=== PATIENT | female | born 1965 | race Caucasian/White ===

== ENCOUNTER 2017-07-05 15:19 | Observation (INO) ==
--- NOTE | 2017-07-05 16:02 | Emergency Department Note ---
ED Disposition Clinical Impression: Chest pain, Hypertension, Anxiety Disposition: Still a Patient Condition on Discharge: Fair Referrals: Terrance Ramos MD [Primary Care Provider] - - Critical Care Critical Care Time: No Attestation: On 07/05/17, the high probability of a clinically significant, sudden or life threatening deterioration of the following system(s) required my full and direct attention, intervention and personal management. The time I documented below is in addition to time spent performing reported procedures but includes the following listed in this critical care notation. Medical Decision Making - Medical Records Medical records reviewed: Yes: I reviewed the patient's medical records. - Gregor Inquiry Pt receiving controlled substance: No Gregor was queried for this patient: No Vital Signs: 07/05/17 15:20 07/05/17 16:20 07/05/17 16:30 Temperature 98.6 F Temperature Source Oral Pulse Rate 85 Pulse Rate [Right Radial] 77 98 H Respiratory Rate 20 20 Blood Pressure [Right Arm] 145/93 163/97 Blood Pressure Mean [Right Arm] 110 119 Blood Pressure Source [Right Arm] Automatic Cuff Automatic Cuff Blood Pressure Position [Right Arm] Sitting Sitting 02 Sat by Pulse Oximetry 99 100 Oxygen Delivery Method Room Air Room Air - Lab Data Lab Results 07/05/17 16:00: WBC 6.1, RBC 4.18 L, Hgb 13.0, Hct 38.4, MCV 92.0, MCH 31.2, MCHC 33.9, RDW 13.9, Plt Count 244, MPV 7.0 L, Neut % (Auto) 48.0, Lymph % (Auto ) 42.9, Greer % (Auto) 7.5, Eos % (Auto) 1.1, Baso % (Auto) 0.4, Neut # (Auto) 2.9, Lymph # (Auto) 2.6, Greer # (Auto) 0.5, Eos # (Auto) 0.1, Baso # (Auto) 0.0 07/05/17 16:00: Sodium 140, Potassium 3.6, Chloride 103, Carbon Dioxide 28, Anion Gap 12.6, BUN 11, Creatinine 0.68, Estimated Creat Clear 117, Estimated GFR 92, Est GFR ( Amer) 111, Glucose 108 H, Calcium 9.1, Total Bilirubin 0.2, AST 28, ALT 30, Alkaline Phosphatase 56, Total Creatine Kinase 117, CK-MB ( CK-2) < 0.5, CK-MB (CK-2) Rel Index 0.4, Troponin I < 0.02, Total Protein 7.6, Albumin 3.9, Globulin 3.7 H, Albumin/Globulin Ratio 1.1 07/05/17 16:00: D-Dimer < 100 07/05/17 16:00: B-Natriuretic Peptide 14 Result diagrams: 07/05/17 16:00 07/05/17 16:00 Orders (Tests/Meds): ED MEDICATIONS Generic Name Dose Route Start Last Admin Trade Name Freq PRN Reason Stop Dose Admin Aspirin 325 mg 07/06/17 09:00 07/05/17 16:15 Aspirin Ec 325mg Tablet PO 08/05/17 08:59 325 mg DAILY MEG Administration Nitroglycerin 0.5 gm 07/05/17 16:15 07/05/17 16:15 Nitroglycerin 1 Inch Oint Udp TD 08/04/17 16:14 0.5 gm Q6H MEG Administration Discontinued Medications Generic Name Dose Route Start Last Admin Trade Name Freq PRN Reason Stop Dose Admin Albuterol/Ipratropium 3 ml 07/05/17 16:07 07/05/17 16:25 Duoneb 3ml Neb IH 07/05/17 16:08 3 ml ONCE ONE Administration Lorazepam 1 mg 07/05/17 17:00 Ativan 2mg/Ml Vial IV 07/05/17 17:01 ONCE ONE ORDERS Category Date Time Status ECG Request by /Meggan Stat Y 07/05/17 15:37 Ordered - Radiology Data #1 Image(s): Chest Image Reviewed: Yes I reviewed the patient's radiology image, Yes I have reviewed radiologist's interpretation Preliminary Findings: Normal/NAD - ECG Data Tracing #1 Normal sinus rhythm 74/min left axis deviation no acute findings Medical Decision Narrative: Patient received DuoNeb nitroglycerin and enteric-coated aspirin she continued to complain of shortness of breath and chest pain. She labs were negative. [address] Henson for admission and cardiology consultation. Chest Pain HPI - General Chief Complaint: Shortness of Breath/Dyspnea Stated Complaint: soa, chest pain Time Seen by Provider: 07/05/17 15:20 Mode of Arrival: Wheelchair Limitations: No Limitations Description of Symptoms (Recalled from ER Triage Doc. by RN): pt was [facility] upon leaving office she was telling them she has been having pain under her L breast , and SOA that has been coming and going x2 days , CP and SOA dont come at the same time and only last for brief time. no cardiac HX , only HX of RA - History of Present Illness HPI narrative: 51 years old white female non-smoker with history of rheumatoid arthritis she was here to get a nerve conduction study. That is when she reported to them that she has been experiencing left inframammary pain dull in character (last was noon yesterday more than 24). She complains of shortness of breath that was last noted 30 minutes prior to arrival. Currently she is asymptomatic of both chest pain shortness of breath or palpitations. He denies nausea or vomiting or abdominal pain. She denies having hematemesis hemoptysis coffee- ground emesis. She denies 3 off hypertension hyperlipidemia she admits for a strong family history of coronary artery disease. MD complaint: chest pain Onset (ago): day(s) (2 episodes of chest pain yesterday at rest.) Time: 12:00 (YESTERDAY) Duration: now resolved Activity at onset: during rest Pain location: left chest (INFRAMAMMARY LEFT CHEST PAIN. ) Severity: moderate Severity scale (1-10): 5 Relieving factors: nothing Exacerbating factors: nothing Associated symptoms: dyspnea Risk Factors for CAD: Family Hx of CAD Treatments prior to or on arrival for Cardiac Chest Pain: none - Related Data Home Medications Medication Instructions Recorded Confirmed abatacept 125 mg/mL subcutaneous 125 mg SUB-Q WEEKLY 28 Days #4 07/05/17 syringe alprazolam 0.5 mg tablet 0.5 mg PO TID 30 Days #90 07/05/17 folic acid 1 mg tablet 1 mg PO DAILY 30 Days #30 07/05/17 hydroxychloroquine 200 mg tablet 200 mg PO BID 30 Days #60 07/05/17 methotrexate sodium (PF) 25 mg/mL 25 mg IM WEEKLY 30 Days #10 07/05/17 injection solution sulindac 200 mg tablet 200 mg PO BID 30 Days #60 07/05/17 Allergies Allergy/AdvReac Type Severity Reaction Status Date / Time No Known Allergies Allergy Verified 07/05/17 15:[address] [facility] History I have reviewed the patient's past medical history: Yes Medical History: Reports:: Anxiety, Depression Other Medical History: Reports: Anemia, Arthritis Other Surgeries: Yes: Cholecystectomy, Tubal Ligation - Social History Smoking Status: Former smoker Alcohol Intake: current Alcohol Intake Frequency:: a few times a week Substance Use Type: denies use Occupational Status: unemployed Housing: house Household Members: family - Psychiatric History Pschychiatric History:: Reports:: Anxiety, Depression Family Hx:: Coronary Artery Disease Comment: copd ROS Obtained: Yes All systems reviewed & no additional complaints Physical Exam - General General appearance: alert, in no apparent distress - Head Head exam: atraumatic, normocephalic, normal inspection - Eye Eye exam: Present: normal appearance, PERRL, EOMI - ENT ENT exam: Present: normal exam, normal oropharynx, mucous membranes moist, TM's normal bilaterally, normal external ear exam - Neck Neck exam: Present: normal inspection, full ROM, trachea midline. Absent: meningismus, lymphadenopathy - Chest Chest inspection: Present: normal inspection, symmetric chest wall rise. Absent : tenderness - Respiratory Respiratory exam: Present: normal lung sounds bilaterally. Absent: respiratory distress - Cardiovascular Cardiovascular exam: Present: regular rate, normal rhythm. Absent: JVD - Abdominal Exam Abdominal exam: Present: soft, normal bowel sounds. Absent: distention, tenderness, guarding - Extremities Exam Extremities exam: Present: normal inspection, full ROM, normal capillary refill. Absent: calf tenderness - Back Exam Back exam: Present: normal inspection. Absent: tenderness - Neurological Exam Neurological exam: Present: alert, oriented X3, CN II-XII intact, motor sensory deficit, reflexes normal - Psychiatric Psychiatric exam: Present: normal affect, normal mood - Skin Skin exam: Present: warm, dry, intact, normal color - Lymphatic Lymphatic Findings: no adenopathy
[2017-07-05 16:07] LABS: Basophils % 0.4 % (0.1-2.0); Eosinophils # 0.1 K/mm3 (0.0-0.4); Eosinophils % 1.1 % (0.1-12.0); Hematocrit 38.4 % (37.0-47.0); Lymphocytes # 2.6 K/mm3 (0.7-4.5); Lymphocytes % 42.9 K/mm3 (10-50); Mean Corpuscular HGB Conc 33.9 g/dL (31.8-35.4); Mean Corpuscular Hemoglobin 31.2 pg (27.0-31.2); Monocytes # 0.5 K/mm3 (0.1-1.0); Monocytes % 7.5 % (1.7-9.3); Neutrophils # 2.9 K/mm3 (1.8-7.8); Platelet Count 244 K/mm3 (142-424); Red Blood Count 4.18 M/mm3 (4.20-5.40); Red Cell Distribution Width 13.9 % (11.5-17.5); White Blood Count 6.1 K/mm3 (4.8-10.8)
[2017-07-05 16:39] LABS: Alanine Aminotransferase 30 U/L (12-78); Albumin Level 3.9 gm/dL (3.4-5.0); Albumin/Globulin Ratio 1.1 (1.1-1.8); Alkaline Phosphatase 56 U/L (46-116); Anion Gap 12.6 mEq/L (5-15); Aspartate Amino Transferase 28 U/L (15-37); Bilirubin,Total 0.2 mg/dL (0.2-1.0); Blood Urea Nitrogen 11 mg/dL (7-18); Calcium 9.1 mg/dL (8.5-10.1); Carbon Dioxide 28 mmol/L (21.0-32.0); Chloride 103 mmol/L (98-107); Creatine Kinase 117 U/L (26-192); Globulin 3.7 gm/dl (1.3-3.2); Glucose 108 mg/dL (74-106); Potassium 3.6 mmoL/L (3.5-5.1); Sodium 140 mmol/L (136-145); Total Protein,Serum 7.6 gm/dL (6.4-8.2)
--- NOTE | 2017-07-05 19:18 | Progress Note ---
Internal Medicine - PN: Subj *Date: 07/05/17 *Time: 19:15 Interval history: This 51-year-old white female was being seen by neurology for symptoms of paresthesias of the hands. Her blood pressure was found to be elevated and she was sent to the emergency room. She was also experiencing some shortness of breath and tightness of chest. She received a nebulizer treatment in the emergency room and experienced increased heart rate and became tremulous and anxious. She was admitted at this point for observation. At the time of this exam she is stable. She is not having chest discomfort. Her pressures have been elevated. In the emergency room she recorded pressures of 133/83, 163/97, 145/93. At the present time she is registering a blood pressure of 158/89. She thinks that recently her blood pressures may have been elevated at home. She has been taking her regular medications. Exam Vital signs and Labs for Last 24 Hours: Temp Pulse Resp BP Pulse Ox 98.6 F 93 H 18 133/83 98 07/05/17 18:16 07/05/17 18:16 07/05/17 18:16 07/05/17 18:16 07/05/17 18:16 Laboratory Results - last 24 hr 07/05/17 18:20: Troponin I < 0.02 I & O for Last 24 hours: Intake & Output 07/03/17 07/04/17 07/05/17 07/06/17 11:59 11:59 11:59 11:59 Weight 162 lb 8 oz - Constitutional no acute distress - *Routine HEENT Exam Head: Present: normocephalic Eye: Present: EOMI, PERRL ENT: Present: mucous membranes moist - *Routine Neck Exam Present: supple - *Routine Respiratory Exam Present: CTA bilaterally. Absent: rales, rhonchi, wheezes - *Routine Cardiovascular Exam Present: RRR Comments: 82 - *Routine Abdominal Exam Present: soft. Absent: tenderness - *Routine Extremities Exam Absent: edema - *Routine Neurological Exam Present: alert, oriented X3, normal tone, normal speech. Absent: altered mental status, facial asymmetry, tremors - Routine Psychiatric Exam Present: normal affect, normal thought process Assessment and Plan (1) Idiosyncratic reaction to medication after proper dose Current visit: Yes Status: Acute Category: Medical Code(s): T50.905A - Adverse effect of unspecified drugs, medicaments and biological substances, initial encounter (2) Anxiety Current visit: Yes Status: Acute Category: Medical Code(s): F41.9 - Anxiety disorder, unspecified (3) Chest pain Current visit: Yes Status: Acute Category: Medical Code(s): R07.9 - Chest pain, unspecified (4) Hypertension Current visit: Yes Status: Acute Category: Medical Code(s): I10 - Essential (primary) hypertension - Assessment and plan all Dx Assessment and Plan for all problems:: Observe overnight and adjust blood pressure medications accordingly. Troponins have been negative. Other lab work has been normal.
--- NOTE | 2017-07-06 07:30 | Pharmacy Consult Notes ---
[facility] [place] Pharmacy VTE Monitoring - Patient Demographics Admission date: 07/05/17 Report Date: 07/06/17 Time: 07:30 Allergies/Adverse Reactions: Patient Allergies adalimumab [From Humira] Allergy (Mild, Verified 07/05/17 18:36) Hives Height: 1.57 m Weight: 73.709 kg Patient Problems: Current Active Problems Chest pain (Acute) Hypertension (Acute) Anxiety (Acute) Idiosyncratic reaction to medication after proper dose (Acute) - VTE Risk Labs: VTE Related Lab Results Hgb 13.0 g/dL (12.2-16.2) 07/05/17 16:00 Hct 38.4 % (37.0-47.0) 07/05/17 16:00 Plt Count 244 K/mm3 (142-424) 07/05/17 16:00 BUN 11 mg/dL (7-18) 07/05/17 16:00 Creatinine 0.68 mg/dL (0.55-1.02) 07/05/17 16:00 Estimated Creat Clear 117 mL/min (0-300) 07/05/17 16:00 Was VTE Risk Assessment Performed: Yes VTE Score: 1 VTE Risk Level: Very Low Risk - Prophylaxis VTE Prophylaxis Ordered?: Yes Types of VTE Prophylaxis: TEDS Knee High Location of Applied Device: Bilateral Lower Extremeties - VTE Diagnosis Confirmed Treatment or plan recommended: Continue Current Treatment
--- NOTE | 2017-07-06 08:37 | History & Physical Report ---
*Admission Date: 07/05/17 *Chief complaint: SOA, CP, elevated BP [facility] History Medical History: Reports:: Anxiety, Depression, Hyperlipidemia Denies:: Cancer, Diabetes Mellitus Type 1, Diabetes Mellitus Type 2, MRSA Other Medical History: Reports: Anemia, Arthritis, Chemotherapy (methotrexate ( RA)) Other Surgeries: Yes: Cholecystectomy, Colonoscopy, EGD, Tubal Ligation Amputation: No Fractures: No - *Social History Educational Level: Completed GED/General Educational Development Smoking Status: Never smoker Alcohol Intake: current Alcohol Intake Frequency:: a few times a week Substance Use Type: denies use Occupational Status: unemployed Housing: house Household Members: spouse, children - Psychiatric History Expresses thoughts of harming self/others: None Suicide Plan Description: No Plan Pschychiatric History:: Reports:: Anxiety, Depression *Family Hx:: Anemia, Coronary Artery Disease, Diabetes, Heart Attack, Hyperlipidemia, Hypertension, Kidney Disease, Stroke, Tuberculosis Meds Home Medications Medication Instructions Recorded Confirmed Type abatacept 125 mg/mL subcutaneous 125 mg SUB-Q WEEKLY 28 Days #4 07/05/17 History syringe alprazolam 0.5 mg tablet 0.5 mg PO TID 30 Days #90 07/05/17 07/05/17 History folic acid 1 mg tablet 1 mg PO DAILY 30 Days #30 07/05/17 07/05/17 History hydroxychloroquine 200 mg tablet 200 mg PO BID 30 Days #60 07/05/17 07/05/17 History methotrexate sodium (PF) 25 mg/mL 25 mg IM WEEKLY 30 Days #10 07/05/17 07/05/17 History injection solution sulindac 200 mg tablet 200 mg PO BID 30 Days #60 07/05/17 07/05/17 History raNITIdine HCl [Ranitidine HCl] 150 mg PO DAILY 07/06/17 07/06/17 History Allergies Allergy/AdvReac Type Severity Reaction Status Date / Time adalimumab [From Humira] Allergy Mild Hives Verified 07/05/17 18:36 Exam Vital signs and Labs for Last 24 Hours: Temp Pulse Resp BP Pulse Ox 98.0 F 70 18 96/57 98 07/06/17 03:56 07/06/17 04:00 07/06/17 03:56 07/06/17 03:56 07/06/17 03:56 Laboratory Results - last 24 hr 07/05/17 18:20: Troponin I < 0.02 07/06/17 06:28: Troponin I < 0.02 I & O for Last 24 hours: Intake & Output 07/03/17 07/04/17 07/05/17 07/06/17 11:59 11:59 11:59 11:59 Output Total 900 / 900 Balance -900 / -900 Weight 162 lb 8 oz H&P: Result - Labs Labs: Cardiac Enzymes 07/05/17 07/06/17 Range/Units 18:20 06:28 Troponin I < 0.02 < 0.02 (0.00-0.06) ng/ml Assessment and Plan (1) Idiosyncratic reaction to medication after proper dose Current visit: Yes Status: Acute Category: Medical Code(s): T50.905A - Adverse effect of unspecified drugs, medicaments and biological substances, initial encounter (2) Anxiety Current visit: Yes Status: Acute Category: Medical Code(s): F41.9 - Anxiety disorder, unspecified (3) Chest pain Current visit: Yes Status: Acute Category: Medical Code(s): R07.9 - Chest pain, unspecified (4) Hypertension Current visit: Yes Status: Acute Category: Medical Code(s): I10 - Essential (primary) hypertension
--- NOTE | 2017-07-06 08:42 | H&P/Discharge Summary ---
General - General Admission date: 07/05/17 Discharge date: 07/06/17 *Admission Date: 07/05/17 *Chief complaint: CP, SOA, HTN *History of present illness: Ms. Bales is a 51-year-old white female who was being seen by neurology for symptoms of paresthesias of the hands. Her blood pressure was found to be elevated and she was sent to the emergency room. She was also experiencing some shortness of breath and tightness of the chest. She received a nebulizer treatment in the emergency room and experienced increased heart rate and became tremulous and anxious. She was admitted at this point for observation. [facility] History Medical History: Reports:: Anxiety, Depression, Hyperlipidemia Denies:: Cancer, Diabetes Mellitus Type 1, Diabetes Mellitus Type 2, MRSA Other Medical History: Reports: Anemia, Arthritis, Chemotherapy (methotrexate ( RA)) Other Surgeries: Yes: Cholecystectomy, Colonoscopy, EGD, Tubal Ligation Amputation: No Fractures: No - *Social History Educational Level: Completed GED/General Educational Development Smoking Status: Never smoker Alcohol Intake: current Alcohol Intake Frequency:: a few times a week Substance Use Type: denies use Occupational Status: unemployed Housing: house Household Members: spouse, children - Psychiatric History Expresses thoughts of harming self/others: None Suicide Plan Description: No Plan Pschychiatric History:: Reports:: Anxiety, Depression *Family Hx:: Anemia, Coronary Artery Disease, Diabetes, Heart Attack, Hyperlipidemia, Hypertension, Kidney Disease, Stroke, Tuberculosis Review of Systems - Constitutional Reports weakness, Denies body ache(s), Denies headache(s) - Eyes Denies blurry vision, Denies double vision - ENT Reports nasal congestion, Reports sore throat - *Cardiovascular Reports chest pain (none now), Denies leg swelling, Denies fast heart rate - *Respiratory Reports shortness of breath, Denies cough - *Gastrointestinal Reports nausea, Denies abdominal pain, Denies loose stools, Denies vomiting - *Genitourinary Denies difficulty urinating - *Musculoskeletal Denies joint pain - *Neurologic Denies headache(s), Denies dizziness, Denies weakness Exam Vital signs and Labs for Last 24 Hours: Temp Pulse Resp BP Pulse Ox 98.0 F 70 18 96/57 98 07/06/17 03:56 07/06/17 04:00 07/06/17 03:56 07/06/17 03:56 07/06/17 03:56 Laboratory Results - last 24 hr Lab Results 07/05/17 00:10: Troponin I < 0.02 07/05/17 16:00: WBC 6.1, RBC 4.18 L, Hgb 13.0, Hct 38.4, MCV 92.0, MCH 31.2, MCHC 33.9, RDW 13.9, Plt Count 244, MPV 7.0 L, Neut % (Auto) 48.0, Lymph % (Auto ) 42.9, Lynn % (Auto) 7.5, Eos % (Auto) 1.1, Baso % (Auto) 0.4, Neut # (Auto) 2.9, Lymph # (Auto) 2.6, Lynn # (Auto) 0.5, Eos # (Auto) 0.1, Baso # (Auto) 0.0 07/05/17 16:00: Sodium 140, Potassium 3.6, Chloride 103, Carbon Dioxide 28, Anion Gap 12.6, BUN 11, Creatinine 0.68, Estimated Creat Clear 117, Estimated GFR 92, Est GFR ( Amer) 111, Glucose 108 H, Calcium 9.1, Total Bilirubin 0.2, AST 28, ALT 30, Alkaline Phosphatase 56, Total Creatine Kinase 117, CK-MB ( CK-2) < 0.5, CK-MB (CK-2) Rel Index 0.4, Troponin I < 0.02, Total Protein 7.6, Albumin 3.9, Globulin 3.7 H, Albumin/Globulin Ratio 1.1 07/05/17 16:00: D-Dimer < 100 07/05/17 16:00: B-Natriuretic Peptide 14 07/05/17 16:00: TSH 1.70 07/05/17 18:20: Troponin I < 0.02 07/06/17 06:28: Troponin I < 0.02 I & O for Last 24 hours: Intake & Output 07/03/17 07/04/17 07/05/17 07/06/17 11:59 11:59 11:59 11:59 Output Total 900 / 900 Balance -900 / -900 Weight 162 lb 8 oz - Constitutional no acute distress - *Routine HEENT Exam Head: Present: normocephalic, atraumatic Eye: Present: EOMI, PERRL ENT: Present: mucous membranes moist - *Routine Neck Exam Present: supple, full ROM. Absent: carotid bruit - *Routine Respiratory Exam Present: CTA bilaterally - *Routine Cardiovascular Exam Present: RRR - *Routine Abdominal Exam Present: soft, normoactive bowel sounds. Absent: tenderness - *Routine Extremities Exam Absent: edema - *Routine Skin Exam Present: intact - *Routine Neurological Exam Present: alert, oriented X3 Hospital Course Hospital Course: The patient had only one more episode of chest discomfort and it resolved on its own. Her pressures were elevated and she was started on toprol and nitro paste. Her BP was actually low this am, so nitro was discontinued. Her enzymes were all normal. Cardiology did see the patient. She had a normal echo as well. IL was ruled out. They felt she was stable to be discharged home on metoprolol succinate 25mg daily and will need to follow-up in the cardiology office for an outpatient stress test. Results Labs on day of discharge: Labs from last 24 hours 07/06/17 07/05/17 06:28 18:20 Troponin I < 0.02 < 0.02 - Impressions CXR - nothing acute DS: Diagnosis - Discharge Diagnosis (1) Chest pain Status: Acute (2) Idiosyncratic reaction to medication after proper dose Status: Acute (3) Anxiety Status: Acute (4) Hypertension Status: Acute Discharge Medications Discharge Medications: Home Medications Medication Instructions Recorded Confirmed Type abatacept 125 mg/mL subcutaneous 125 mg SUB-Q WEEKLY 28 Days #4 07/05/17 History syringe alprazolam 0.5 mg tablet 0.5 mg PO TID 30 Days #90 07/05/17 07/05/17 History folic acid 1 mg tablet 1 mg PO DAILY 30 Days #30 07/05/17 07/05/17 History hydroxychloroquine 200 mg tablet 200 mg PO BID 30 Days #60 07/05/17 07/05/17 History methotrexate sodium (PF) 25 mg/mL 25 mg IM WEEKLY 30 Days #10 07/05/17 07/05/17 History injection solution sulindac 200 mg tablet 200 mg PO BID 30 Days #60 07/05/17 07/05/17 History raNITIdine HCl [Ranitidine HCl] 150 mg PO DAILY 07/06/17 07/06/17 History Disposition Disposition: Home, Self-Care
--- NOTE | 2017-07-06 10:34 | Consult Report ---
History of Present Illness Consult date: 07/06/17 Requesting physician: Terrance Ramos Consult reason: chest pain, shortness of breath Chief complaint: Chest pain and Shortness of breath Additional Medical History:: 1. Atypical chest pain 2. Dyspnea 3. No known Coronary Artery Disease. 4. Anxiety 5. Hyperlipidemia 6. Significant Family history of Coronary Artery Disease Father -LA ( unknown age) Mother- CAD Brother- [place] History of present illness: 51 year old white female admitted to facility for chest pain and shortness of breath. Pt stated that she had been evaluated by neurology and was told her blood pressure was elevated. Pt began having increase anxiety and developed chest pain (midsternal) non-radiating. Pt stated after she had nebulizer treatment, she felt much better. Pt has no known cardiac disease. Significant family history of CAD and [place]. Initial EKG revealed Sinus rhythm with rate of 74bpm. CXR revealed no acute findings. Baseline labs were unremarkable. Serial cardiac enzymes were negative. Pt was admitted for observation. [facility] History Medical History: Reports:: Anxiety, Depression, Hyperlipidemia Denies:: Cancer, Diabetes Mellitus Type 1, Diabetes Mellitus Type 2, MRSA Other Medical History: Reports: Anemia, Arthritis, Chemotherapy (methotrexate ( RA)) Other Surgeries: Yes: Cholecystectomy, Colonoscopy, EGD, Tubal Ligation Amputation: No Fractures: No - *Social History Educational Level: Completed GED/General Educational Development Smoking Status: Never smoker Alcohol Intake: current Alcohol Intake Frequency:: a few times a week Substance Use Type: denies use Occupational Status: unemployed Housing: house Household Members: spouse, children - Psychiatric History Expresses thoughts of harming self/others: None Suicide Plan Description: No Plan Pschychiatric History:: Reports:: Anxiety, Depression *Family Hx:: Anemia, Coronary Artery Disease, Diabetes, Heart Attack, Hyperlipidemia, Hypertension, Kidney Disease, Stroke, Tuberculosis Meds Home Medications Medication Instructions Recorded Confirmed Type abatacept 125 mg/mL subcutaneous 125 mg SUB-Q WEEKLY 28 Days #4 07/05/17 History syringe alprazolam 0.5 mg tablet 0.5 mg PO TID 30 Days #90 07/05/17 07/05/17 History folic acid 1 mg tablet 1 mg PO DAILY 30 Days #30 07/05/17 07/05/17 History hydroxychloroquine 200 mg tablet 200 mg PO BID 30 Days #60 07/05/17 07/05/17 History methotrexate sodium (PF) 25 mg/mL 25 mg IM WEEKLY 30 Days #10 07/05/17 07/05/17 History injection solution sulindac 200 mg tablet 200 mg PO BID 30 Days #60 07/05/17 07/05/17 History raNITIdine HCl [Ranitidine HCl] 150 mg PO DAILY 07/06/17 07/06/17 History Allergies Allergy/AdvReac Type Severity Reaction Status Date / Time adalimumab [From Humira] Allergy Mild Hives Verified 07/05/17 18:36 Review of Systems - Review of Systems Review of systems:: pertinent systems reviewed and negative unless documented below - Constitutional Reports fatigue, Reports lack of energy, Reports weakness - *Cardiovascular Reports chest pain, Reports chest pain at rest, Reports chest pain with activity , Reports shortness of breath, Denies generalized swelling, Denies irregular heart rhythm, Denies lightheadedness, Denies radiating jaw, neck or arm pain, Denies fast heart rate - *Respiratory Reports shortness of breath, Reports shortness of breath with activity, Denies chest congestion, Denies cough, Denies stridor, Denies wheezing - *Gastrointestinal Denies abdominal pain, Denies heartburn - *Musculoskeletal Reports muscle weakness - *Neurologic Denies dizziness, Denies headache(s), Denies dizziness, Denies weakness Exam Vital signs and Labs for Last 24 Hours: Temp Pulse Resp BP Pulse Ox 98.0 F 78 16 98/60 98 07/06/17 08:00 07/06/17 08:00 07/06/17 08:00 07/06/17 08:00 07/06/17 08:00 Laboratory Results - last 24 hr 07/05/17 18:20: Troponin I < 0.02 07/06/17 06:28: Troponin I < 0.02 I & O for Last 24 hours: Intake & Output 07/03/17 07/04/17 07/05/17 07/06/17 23:59 23:59 23:59 23:59 Output Total 400 / 400 500 / 500 Balance -400 / -400 -500 / -500 Weight 162 lb 8 oz 162 lb 8 oz - Constitutional no acute distress, average body habitus, cooperative - *Routine Neck Exam Present: supple, full ROM, normal carotid upstroke, trachea midline. Absent: JVD, carotid bruit - *Routine Respiratory Exam Present: CTA bilaterally. Absent: rales, rhonchi, wheezes, crackles - *Routine Cardiovascular Exam Present: RRR, Normal S1, Normal S2. Absent: murmur, gallop, rubs, JVD - *Routine Abdominal Exam Present: soft. Absent: distended, guarding - *Routine Extremities Exam Present: full ROM, pulses intact, normal capillary refill. Absent: cyanosis, clubbing, edema - *Routine Neurological Exam Present: alert, oriented X3, CN II-XII intact, moving all extremities, normal speech Assessment and Plan (1) Chest pain Current visit: Yes Status: Acute Category: Medical Code(s): R07.9 - Chest pain, unspecified (2) Idiosyncratic reaction to medication after proper dose Current visit: Yes Status: Acute Category: Medical Code(s): T50.905A - Adverse effect of unspecified drugs, medicaments and biological substances, initial encounter (3) Anxiety Current visit: Yes Status: Acute Category: Medical Code(s): F41.9 - Anxiety disorder, unspecified (4) Hypertension Current visit: Yes Status: Acute Category: Medical Code(s): I10 - Essential (primary) hypertension - Assessment and plan all Dx Assessment and Plan for all problems:: Plan: 1. Continue current medical management. 2. Add Aspirin 81mg po daily. 3. Obtain Echocardiogram to assess LV function and valve status. 4. Obtain GXT myoview outpatient for atypical chest pain and significant family history.
--- NOTE | 2017-07-09 21:23 | Cardiology Report ---
PROCEDURE: 2-D M-mode and color Doppler study INDICATIONS FOR THE TEST: Chest pain X COPD Heart Murmur Tobacco Smoking Palpitations Fatigue Syncope Edema HypertensionXDiabetes Mellitus Rheumatic Fever SOBXDOE Obesity Hyperlipidemia Family History HD Additional History PATIENT INFORMATION HEIGHT: 62 WEIGHT:162 GENDER: Female B/P:133/83 2-D/M-MODE INTERPRETATION: 2-D MEASUREMENTS OBSERVED VALUES IN CMS Right Ventricular Dimension (RVDd) 2.7 Interventricular Septum (Thickness)(IVsd) 1.0 Left Ventricular Internal Dimensions(LVIDd) 3.8 Left Ventricular Posterior Wall (Thickness)(LVPWd) .8 Aortic Root 2.7 Aortic Cusp Separation 1.9 Left Atrial Dimensions (LAD) 2.9 2D 1. Left atrium is mildly enlarged, left ventricle is normal size, mild concentric left ventricular hypertrophy, visually estimated ejection fraction of 55% with no obvious regional wall motion abnormality. 2. The right atrium and right ventricle are mildly enlarged with normal contractility. 3. The aortic valve is minimally thickened and fibrosed. 4. The mitral and tricuspid valvular grossly normal. 5. The pulmonic valve is poorly visualized. 6. No significant pericardial effusion noted. DOPPLER INTERROGATION: Doppler interrogation of the aortic, mitral and tricuspid valvular presence of mild mitral and tricuspid regurgitation, tricuspid regurgitant jet velocity is insufficient for calculation of the right ventricular systolic pressure, diastolic parameters are within normal range. CONCLUSION: 1. Mildly enlarged left atrium, normal left ventricular size, mild concentric left ventricular hypertrophy, visually estimated ejection fraction 55% with no obvious regional wall motion abnormality. Diastolic parameters are within normal range. 2. Mild mitral and tricuspid regurgitation 3. No significant pericardial effusion noted.
== END 2017-07-06 15:00 | disposition home or self-care (01) ==
LOC: ER 15:19 → 2ND 15:19
PROVIDERS: ADMIT Family Medicine; ATTEND Family Medicine

== ENCOUNTER → 2017-07-13 12:42 | Outpatient (CLI) | payer MEDICAID, SELFPAY ==
--- NOTE | 2017-07-13 12:51 | XR_ITS ---
XR foot wt bearing RT 3V Ordering Physician: Allegra Luna Patient Age: 51 years: Female HISTORY: Right foot pain heel pain. TECHNIQUE: 3 views right foot weightbearing COMPARISON :None FINDINGS The forefoot appears intact. The toes are intact. Joint spaces well-maintained. Normal relationships. Adequate plantar arch. I would question a small subchondral cystic area at the medial margin of the navicular near the tendinous insertion but no soft tissue swelling or other features here Plantar calcaneal spur measuring8 mm length Only scant and minimal spurring at insertion of Achilles tendon noted Ankle mortise appears intact on lateral view. IMPRESSION: Right foot intact. Minor observations in text
[2017-07-14 20:15] LABS: Folate >20.0 ng/mL (>3.0); Vitamin B12 593 pg/mL (232-1245)
[2017-07-18 06:18] LABS: Vitamin B1 116.3 nmol/L (66.5-200.0)
== END ==
PROVIDERS: Visit Provider Nurse Practitioner Family
DX: G57.93 Unspecified mononeuropathy of bilateral lower limbs (principal); R11.0 Nausea; R06.02 Shortness of breath; R03.0 Elevated blood-pressure reading, without diagnosis of hypertension; R20.2 Paresthesia of skin; M06.9 Rheumatoid arthritis, unspecified; Z87.898 Personal history of other specified conditions
CPT/HCPCS: 36415; 73630; 82607; 82746; 84425

== ENCOUNTER → 2017-07-18 16:30 | Outpatient (CLI) | payer MEDICAID, SELFPAY ==
--- NOTE | 2017-07-18 16:36 | XR_ITS ---
EXAM: XR cervical spine 5V HISTORY: Neck pain ITS.REASON: RHEUMATOID ARTHRITIS ORDERING PHYSICIAN: Terrance Ramos MD PATIENT AGE: 51 years FINDINGS: There is minimal anterolisthesis of C4 on 5 of 1 to 2 mm with slight reversal of cervical lordosis at this level. Degenerative disc disease is present at C5-C6 with decrease in the disc space and endplate osteophytes. The foramina are widely patent. No fracture or dislocation. No lytic or blastic change. No evidence of cervical rib. IMPRESSION: 1. Degenerative disc disease C5-C6. 2. Reversal cervical lordosis which may be due to patient positioning or muscle spasm
== END ==
PROVIDERS: Family Provider Family Medicine; PCP Family Medicine; Visit Provider Family Medicine
DX: M05.741 Rheumatoid arthritis with rheumatoid factor of right hand without organ or systems involvement (principal)
CPT/HCPCS: 72050

== ENCOUNTER → 2017-07-27 13:42 | Outpatient (CLI) | payer MEDICAID, SELFPAY ==
--- NOTE | 2017-07-27 13:43 | CT_ITS ---
CT heart w calcium score CLINICAL INDICATION: ITS.REASON: dyspnea,cp ORDERING PHYSICIAN: Luis Daniel Nieto MD PATIENT AGE: 51 years FINDINGS: Coronary artery calcium score is 0 with no identifiable atherosclerotic plaque. Very low cardiovascular disease risk. Calcified nodes are present in the left hilum. There is a small hiatal hernia IMPRESSION: Coronary artery calcium score of 0 with very low cardiovascular disease risk
== END ==
PROVIDERS: Family Provider Family Medicine; PCP Family Medicine; Visit Provider Internal Medicine
DX: R06.00 Dyspnea, unspecified (principal); I20.9 Angina pectoris, unspecified
CPT/HCPCS: 75571

== ENCOUNTER → 2017-08-06 09:54 | Outpatient (POV) | payer MEDICAID, SELFPAY | PROVIDERS: Family Provider Family Medicine; PCP Family Medicine; Referring Provider Internal Medicine Cardiovascular Disease; Visit Provider Specialist | DX: G57.93 Unspecified mononeuropathy of bilateral lower limbs (principal); R20.2 Paresthesia of skin; M06.9 Rheumatoid arthritis, unspecified | CPT/HCPCS: 95806; 95886; 95910 ==

== ENCOUNTER → 2017-08-15 13:36 | Outpatient (POV) | payer MEDICAID, SELFPAY | PROVIDERS: Family Provider Family Medicine; PCP Family Medicine | DX: Z00.00 Encounter for general adult medical examination without abnormal findings (principal) ==

== ENCOUNTER → 2018-01-11 16:06 | Outpatient (REF) | payer MEDICAID, SELFPAY ==
[2018-01-11 16:10] LABS: Adenovirus F 40/41, stool Not Detected (NotDetected); Astrovirus Not Detected (NotDetected); Campylobacter Not Detected (NotDetected); Clostridium Difficile A/B, PCR Not Detected (NotDetected); Cryptosporidium Not Detected (NotDetected); Cyclospora Cayetanesis Not Detected (NotDetected); Entamoeba histolytica Not Detected (NotDetected); Enteroaggregative E coli Not Detected (NotDetected); Enteropathogenic E coli Not Detected (NotDetected); Enterotoxigenic E coli Not Detected (NotDetected); Giardia lamblia Not Detected (NotDetected); Norovirus Not Detected (NotDetected); Plesimonas Shigalloides, PCR Not Detected (NotDetected); Rotavirus A Not Detected (NotDetected); Salmonella, PCR Not Detected (NotDetected); Sapovirus Not Detected (NotDetected); Shiga-like toxin E coli Not Detected (NotDetected); Shigella Enterovasive E coli Not Detected (NotDetected); Vibrio Cholerae Not Detected (NotDetected); Vibrio, PCR Not Detected (NotDetected); Yersinia Entercolitica, PCR Not Detected (NotDetected)
== END ==
LOC: LAB 16:06
PROVIDERS: Visit Provider Physician Assistant
DX: R19.7 Diarrhea, unspecified (principal)
CPT/HCPCS: 87507

== ENCOUNTER → 2018-01-16 14:07 | Outpatient (CLI) | payer MEDICAID, SELFPAY ==
--- NOTE | 2018-01-16 14:14 | XR_ITS ---
XR chest 2V HISTORY: ITS.REASON: BRONCHITIS ORDERING PHYSICIAN: Terrance Ramos MD PATIENT AGE: 52 years COMPARISON: 07/05/2017 FINDINGS: The cardiomediastinal silhouette and pulmonary vascularity are within normal limits. The lungs are clear without infiltrates, suspicious nodules, or pleural effusions. No acute bony abnormalities. Calcified granulomas present in the left upper lobe. There is an old midshaft right clavicular fracture with inferior angulation of the distal fracture fragment IMPRESSION: No change with no acute finding
--- NOTE | 2018-01-16 14:14 | XR_ITS ---
XR sinus min 3V CLINICAL INDICATION: Sinus drainage ITS.REASON: BRONCHITIS ORDERING PHYSICIAN: Terrance Ramos MD PATIENT AGE: 52 years Comparison: None FINDINGS: There is moderate mucosal thickening of the right maxillary sinus measuring up to 13 mm in thickness. No sinus air-fluid level or other significant anomalies. IMPRESSION: Right maxillary sinus disease
== END ==
PROVIDERS: PCP Family Medicine; Visit Provider Family Medicine
DX: J40 Bronchitis, not specified as acute or chronic (principal)
CPT/HCPCS: 70220; 71046

== ENCOUNTER → 2018-04-05 12:34 | Outpatient (CLI) | payer MEDICAID, SELFPAY ==
--- NOTE | 2018-04-05 12:37 | XR_ITS ---
XR wrist RT min 3V Ordering Physician: Halie Manrique MD Patient Age: 52 years: Female HISTORY: ITS.REASON: Rt wrist pain. Right wrist pain no injury. TECHNIQUE: 3 views right wrist COMPARISON :None FINDINGS Right wrist is intact with no fracture nor dislocation. Joint spaces well-maintained. The navicular appears overall intact. If there should be pain at the anatomical step-off the navicular however follow clavicular views or studies may be indicated. No joint effusion evident at the wrist., The fat plane anterior to wrist appears normal. Intact. ... IMPRESSION: ...... Right wrist intact with No fracture nor dislocation Addendum: Anatomical note on final review note subtle ulnar plus anatomy. Minor observation. With this the ulna is very slightly long relative to the radius. This can yield ulnar lunate abutment.... I see no changes in the lunate however reflects such.. Also Triangular fibrocartilage injuries could also occur with this anatomy
== END ==
PROVIDERS: PCP Family Medicine; Visit Provider Orthopaedic Surgery
DX: M25.531 Pain in right wrist (principal)
CPT/HCPCS: 73110

== ENCOUNTER → 2018-04-20 12:46 | Outpatient (CLI) | payer MEDICAID, SELFPAY ==
[2018-04-20 14:15] LABS: Thyroid Stimulating Hormone 1.38 uIU/ml (0.358-3.740)
[2018-04-21 17:21] LABS: Folate >20.0 ng/mL (>3.0); Vitamin B12 795 pg/mL (232-1245)
[2018-04-23 15:21] LABS: Vitamin E Alpha Tocopherol 16.4 mg/L (7.0-25.1)
[2018-04-23 16:15] LABS: Vitamin E Gamma Tocopherol 2.2 mg/L (0.5-5.5)
[2018-04-24 08:41] LABS: Vitamin B6 32.8 ug/L (2.0-32.8)
[2018-04-26 17:38] LABS: Vitamin B1 104.4 nmol/L (66.5-200.0)
== END ==
PROVIDERS: Visit Provider Orthopaedic Surgery
DX: G62.9 Polyneuropathy, unspecified (principal); R63.5 Abnormal weight gain
CPT/HCPCS: 36415; 82607; 82746; 84207; 84425; 84443; 84446

== ENCOUNTER → 2018-05-13 09:28 | Outpatient (POV) | payer MEDICAID, SELFPAY | PROVIDERS: Visit Provider Specialist | DX: G57.93 Unspecified mononeuropathy of bilateral lower limbs (principal); R20.2 Paresthesia of skin; M06.9 Rheumatoid arthritis, unspecified | CPT/HCPCS: 95886; 95908 ==

== ENCOUNTER → 2018-11-27 13:49 | Outpatient (POV) | payer MEDICAID, SELFPAY | DX: Z00.00 Encounter for general adult medical examination without abnormal findings (principal) ==

== ENCOUNTER → 2019-03-21 12:13 | Outpatient (CLI) | payer OTHER, SELFPAY ==
--- NOTE | 2019-03-21 12:20 | XR_ITS ---
PROCEDURE: XR HAND LT MIN 3V CLINICAL INDICATION: LT HAND PAIN COMPARISON: No exams were available for comparison FINDINGS: No obvious fracture or dislocation. No significant degenerative change. There is some minimal periarticular calcification at the DIP joint of the 2nd digit. IMPRESSION: Minimal periarticular calcifications DIP joint 2nd digit otherwise negative Dictated by: Ishaan Crystal MD 03/21/2019 13:42 Electronically signed by Ishaan Crystal MD in [place] 03/21/2019 13:42
== END ==
PROVIDERS: PCP Physician Assistant; Visit Provider Physician Assistant
DX: M79.642 Pain in left hand (principal)
CPT/HCPCS: 73130

== ENCOUNTER → 2019-11-03 11:13 | Outpatient (CLI) | payer OTHER, SELFPAY ==
--- NOTE | 2019-11-03 11:15 | XR_ITS ---
PROCEDURE: XR FOOT WT BEARING RT 3V CLINICAL INDICATION: pain COMPARISON: CR [id number] XR foot wt bearing RT 3V from 07/13/2017 FINDINGS: No fracture or dislocation. No lytic or blastic change. There is normal mineralization. The joint spaces are well-preserved. No significant degenerative/arthritic changes. No erosive changes evident. Other findings:There is a small nonspecific calcaneal spur not significantly change with a small enthesophyte at the Achilles also unchanged. IMPRESSION: No acute findings. Dictated by: Ishaan Crystal MD 11/03/2019 12:15 Ishaan Crystal MD in [place] 11/03/2019 12:15
--- NOTE | 2019-11-03 11:15 | XR_ITS ---
PROCEDURE: XR FOOT WT BEARING LT 3V CLINICAL INDICATION: pain COMPARISON: CR [id number] XR foot wt bearing RT 3V from 07/13/2017 FINDINGS: No fracture or dislocation. No lytic or blastic change. There is normal mineralization. The joint spaces are well-preserved. No significant degenerative/arthritic changes. No erosive changes evident. Other findings:Incidental note made of a small calcaneal spur and Achilles enthesophyte IMPRESSION: No acute findings. Dictated by: Ishaan Crystal MD 11/03/2019 12:16 Ishaan Crystal MD in [place] 11/03/2019 12:16
== END ==
PROVIDERS: PCP Family Medicine; Visit Provider Nurse Practitioner
DX: M79.672 Pain in left foot (principal); M79.671 Pain in right foot
CPT/HCPCS: 73630

== ENCOUNTER 2020-05-24 09:42 | Emergency (ER) | payer OTHER, SELFPAY ==
--- NOTE | 2020-05-24 09:41 | ECG_ITS ---
APPROVED REPORT Exam: Resting ECG HR:90 bpm ECG Measurements Heart Rate 90 AXES UT 166 P 57 QRSd 80 QRS -32 QT 370 T 61 QTc 452 Conclusion Normal sinus rhythm Left axis deviation Possible Anterior infarct, age undetermined Abnormal ECG Electronically signed by : José Miguel Rm, 05/24/2020 19:21:48
[2020-05-24 09:43] VITALS: BP 153/98; PULSE 96; RESP 16; TEMP 36.7; O2SAT 98; BMI 30.7
--- NOTE | 2020-05-24 09:48 | XR_ITS ---
PROCEDURE: XR CHEST PORTABLE CLINICAL HISTORY: chest pain COMPARISON: CR CXR2V XR chest 2V from 07/05/2017 CR CXR2V XR chest 2V from 01/16/2018 FINDINGS: The cardiomediastinal silhouette and pulmonary vascularity are within normal limits. The lungs are clear without infiltrates, suspicious nodules, or pleural effusions. No acute bony abnormalities. IMPRESSION: No acute findings. Dictated by: Ishaan Crystal MD 05/24/2020 10:25 Ishaan Crystal MD in [place] 05/24/2020 10:25
[2020-05-24 10:04] LABS: Basophils % 0.7 % (0.1-2.0); Eosinophils # 0.2 K/mm3 (0.0-0.4); Eosinophils % 2.9 % (0.1-12.0); Hematocrit 39.7 % (37.0-47.0); Hemoglobin 12.6 g/dL (12.2-16.2); Lymphocytes # 2.6 K/mm3 (0.7-4.5); Lymphocytes % 46.9 % (10-50); Mean Corpuscular HGB Conc 31.6 g/dL (31.8-35.4); Mean Corpuscular Hemoglobin 28.4 pg (27.0-31.2); Mean Corpuscular Volume 89.7 fl (81-99); Mean Platelet Volume 7.5 fl (7.4-10.4); Monocytes # 0.3 K/mm3 (0.1-1.0); Monocytes % 5.7 % (1.7-9.3); Neutrophils # 2.4 K/mm3 (1.8-7.8); Neutrophils % 43.9 % (37.0-80.0); Platelet Count 290 K/mm3 (142-424); Red Blood Count 4.43 M/mm3 (4.20-5.40); Red Cell Distribution Width 14.1 % (11.5-17.5); White Blood Count 5.4 K/mm3 (4.8-10.8)
[2020-05-24 10:06] LABS: Chloride 102 mmol/L (98-107); Sodium 140 mmol/L (136-145)
[2020-05-24 10:09] LABS: Blood Urea Nitrogen 14 mg/dl (7-17); Calcium 10.2 mg/dl (8.4-10.2); Carbon Dioxide 27 mmol/L (22.0-30.0); Creatinine Clearance Estimated 98 mL/min (50-200); Estimated Glomerular Filt Rate 75 ml/min (>60); GFR (African American) 91 ML/MIN (>60); Glucose 213 mg/dl (74-100)
[2020-05-24 10:13] VITALS: BP 143/98; PULSE 86; RESP 18; O2SAT 97
--- NOTE | 2020-05-24 10:18 | [facility].EDCP ---
ED Disposition Clinical Impression: Anxiety, Nonspecific chest pain Disposition: Home, Self-Care Condition on Discharge: Good Instructions: DI for Chest Pain Referrals: Terrance Ramos MD [Primary Care Provider] - Psychiatric Facility [Other] - Critical Care Critical Care Time: No Attestation: On 05/24/20, the high probability of a clinically significant, sudden or life threatening deterioration of the following system(s) required my full and direct attention, intervention and personal management. The time I documented below is in addition to time spent performing reported procedures but includes the following listed in this critical care notation. Medical Decision Making - Medical Records Medical records reviewed: Yes: I reviewed the patient's medical records. - Gregor Inquiry Pt receiving controlled substance: No Vital Signs: 05/24/20 09:43 05/24/20 10:13 05/24/20 11:11 Temperature 98.1 F Temperature Source Oral Pulse Rate [Radial] 96 H 86 92 H Respiratory Rate 16 18 16 Blood Pressure [Right Arm] 153/98 H 143/98 H 107/80 L Blood Pressure Mean [Right Arm] 116 113 89 Blood Pressure Position [Right Arm] Sitting 02 Sat by Pulse Oximetry 98 97 97 Oxygen Delivery Method Room Air - Lab Data Lab Results 05/24/20 09:50: WBC 5.4, RBC 4.43, Hgb 12.6, Hct 39.7, MCV 89.7, MCH 28.4, MCHC 31.6 L, RDW 14.1, Plt Count 290, MPV 7.5, Neut % (Auto) 43.9, Lymph % (Auto) 46.9, [place] % (Auto) 5.7, Eos % (Auto) 2.9, Baso % (Auto) 0.7, Neut # (Auto) 2.4, Lymph # (Auto) 2.6, [place] # (Auto) 0.3, Eos # (Auto) 0.2, Baso # (Auto) 0.0 05/24/20 09:50: Sodium 140, Potassium 4.0, Chloride 102, Carbon Dioxide 27, Anion Gap 15.0, BUN 14, Creatinine 0.80, Estimated Creat Clear 98, Estimated GFR 75, Est GFR ( Amer) 91, Glucose 213 H, Calcium 10.2, Troponin I < 0.01 Result diagrams: 05/24/20 09:50 05/24/20 09:50 Orders (Tests/Meds): ORDERS Category Date Time Status Troponin I Q3H Lab 05/24/20 13:00 Ordered Troponin I Q3H Lab 05/24/20 16:00 Ordered - Radiology Data #1 Image(s): Chest Image Reviewed: Yes I reviewed the patient's radiology results, Yes I reviewed the patient's radiology image, Yes I have reviewed radiologist's interpretation Preliminary Findings: Normal/NAD - ECG Data Tracing #1 No ventricular rate at 90 bpm, VA interval 166 ms, normal QTC, left axis deviation with nonspecific changes. ECG initial impression date: 05/24/20 ECG initial impression time: 09:42 - Reevaluation(s) Time: 11:27 Reevaluation #1: On reevaluation, the patient is pain-free. She is resting comfortably in bed. Troponin is negative. Chest x-ray unremarkable. Did have a long discussion with the family and the patient. She continues to have these episodes of intense anxiety. I do believe she would benefit from further psychiatric evaluation. However the patient is not suicidal, homicidal or depressed at this time. Legally she is not appropriate for medical hold. Patient will be given outpatient follow-up and resources. Patient and family were given strict return precautions. Verbalized understanding. Medical Decision Narrative: 54-year-old female presented to the emergency department with chest pain. This appears to be anxiety driven. Patient is feeling better now after self-administered benzodiazepine. Patient is currently hemodynamically stable. Work-up initiated. Chest Pain HPI - General Chief Complaint: Chest Pain Stated Complaint: chest pain Time Seen by Provider: 05/24/20 09:45 Mode of Arrival: Ambulatory Limitations: No Limitations Description of Symptoms (Recalled from ER Triage Doc. by RN): to ed per pvt car with c/o chest pain radiating to lt arm starting approx 2 hrs [employer]. pt c/o sob, nausea, diaphoresis. pt states just d/lorena from [place] yesterday I was having a break down pt states she took a xanax [employer] and pain is subsiding. - History of Present Illness HPI narrative:
[2020-05-24 10:23] LABS: Troponin I < 0.01 ng/ml (0.00-0.034)
[2020-05-24 11:11] VITALS: BP 107/80; PULSE 92; RESP 16; O2SAT 97
[2020-05-24 11:30] VITALS: BP 139/99; PULSE 85; RESP 18; O2SAT 96
[2020-05-24 11:55] VITALS: BP 129/78; PULSE 78; RESP 18; TEMP 36.6; O2SAT 98
== END 2020-05-24 11:56 | disposition home or self-care (01) ==
PROVIDERS: Emergency Provider Emergency Medicine; PCP Family Medicine
DX: R07.89 Other chest pain (principal); F41.8 Other specified anxiety disorders; I10 Essential (primary) hypertension; E78.5 Hyperlipidemia, unspecified; E11.65 Type 2 diabetes mellitus with hyperglycemia; Z87.891 Personal history of nicotine dependence; Z88.8 Allergy status to other drugs, medicaments and biological substances; Z79.899 Other long term (current) drug therapy
CPT/HCPCS: 71045; 80048; 84484; 85025; 93005; 99283

== ENCOUNTER → 2020-06-10 08:08 | Outpatient (CLI) | payer OTHER, SELFPAY ==
--- NOTE | 2020-06-10 | CA_ITS ---
APPROVED REPORT Exam: Exercise Treadmill Technologist: Annika Boswell, Ht: 5 ft 2 in Wt: 168 lbs BSA: 1.78 m2 HR: 58 bpm BP: 143/88 mmHg Medical History Medications: Lisinopril,,,,, Metoprolol,,,,, Metformin,,,,, Gabapentin,,,,, MeLOXICAM,,,,, Olanzapine,,,,, AtorvaASTATIN,,,,, Desvenlafaxine,,,,, Stress Test Details Test: Kobi HR Resting HR: 61 bpm Max Heart Rate (APMHR): 167.113615 bpm Max HR Achieved: 169 bpm Target HR (85% APMHR): 141.806610 bpm % of APMHR: 101.20 Recovery HR: 77 bpm BP Resting BP: 151/91 mmHg Max BP: 190/94 mmHg Recovery BP: 156.0/94.0 mmHg ECG Resting ECG: Sinus bradycardia Clinical Exercise duration: 08:00 min Highest Stage Achieved: Exercise capacity: 10.1 METs Stress ECG Conclusion Exercised 8:00 on Kobi Protocol Max HR: 139 % of PM: 83% Max BP: 190/94 MET's: 10.0 Test stopped due to: SOA, Fatigue Symptoms: No CP Arrhythmias/Ectopy: None ST-T Changes: Allowing for motion artifact, the ST response to exercise is within normal. Conclusion: Normal GXT to HR achieved. Blunted HR response on beta zackary. [place] images reported separately. Test Summary Stage 3 . . . . . . . . REST . . . . . . . Standing REST 04:29 0.0 0.0 61 . 151/ 91 . . Stage 1 01:00 10.0 1.7 88 . . . . Stage 1 02:00 10.0 1.7 98 . . . . Stage 1 03:00 10.0 1.7 100 . . . . Stage 2 01:00 12.0 2.5 112 . . . . Stage 2 02:00 12.0 2.5 115 . . . . Stage 2 03:00 12.0 2.5 121 . 152/ 85 . . Stage 3 . . . . . . . Cardiolite injected Stage 3 01:00 14.0 3.4 130 . . . . Stage 3 02:00 14.0 3.4 136 . . . Stop exercise at 08:00 RECOVERY 01:00 0.0 0.0 110 . . . . RECOVERY 02:00 0.0 0.0 93 . 190/ 94 . . RECOVERY 03:00 0.0 0.0 79 . 188/ 95 . . RECOVERY 04:00 0.0 0.0 78 . 156/ 89 . . RECOVERY 05:00 0.0 0.0 77 . 156/ 89 . . RECOVERY 05:30 0.0 0.0 80 . 156/ 94 . . Electronically signed by : Adalberto Bertrand, 06/10/2020 12:36:45
--- NOTE | 2020-06-10 08:12 | NM_ITS ---
APPROVED REPORT Exam: Nuclear Stress Test Indication: HTN, DM, HYPERLIPIDEMIA, FM HX, C.P., SOB, FATIGUE Patient Location: Outpatient Stress Tech: Lisa Doughertynkson OR Tech:SHAKEEL Baltazar RT(R)(N) Ht: 5 ft 2 in Wt: 168 lbs HR: 58 bpm BP: 143/88 mmHg BSA: 1.78 m2 BMI: 30.7 History: HTN, DM, HYPERLIPIDEMIA, FM HX, C.P., SOB, FATIGUE Procedure: Patient exercised on Kobi protocol 8:00 minutes and sec, resting heart rate 58 bpm, resting blood pressure 143/88 mmHg, with exercise maximum heart rate achived was 139 bpm which is 83 % of the maximum predicted heart rate and blood pressure was 190/94 mmHg. Patient denied any complaint of chest pain. Patient has exercise capacity, achieved 10.1 METs of workload on treadmill, the blood pressure response to exercise was Adequate. Electrocardiogram Resting electrocardiogram showed sinus rhythm, with exercise there is less than 1.[address] segment depression noted from the baseline EKG. The EKG portion of the exercise Myoview is nondiagnostic as patient did not achieve the target heart rate. Cardiac Stress and Resting SPECT Images: Cardiac Stress and Resting SPECT images were obtained using technetium 99m Myoview 31.5 mCi stress and 10.32 mCi at rest. Gated SPECT for analysis of segmental wall motion and calculation of the ejection fraction also done. Prone images were also obtained. Cardiac stress and resting SPECT images show mild fixed defect in the anterior wall with normal contractility gated SPECT is likely secondary to soft tissue attenuation, no reversible ischemia seen, computer derived ejection fraction is 60% with no regional wall motion abnormality, right ventricle is normal size and contractility. Conclusion: 1. The EKG portion of the exercise Myoview is nondiagnostic due to patient not able to achieve the target heart rate, patient has good exercise capacity achieved 10.1 mets of workload on treadmill, the blood pressure response to exercise was adequate, there was no exercise-induced chest discomfort. 2. No scintigraphic evidence of reversible ischemia seen, computer derived ejection fraction is 60% with no regional wall motion abnormality, right ventricle is normal size and contractility. 3. Likely normal exercise Myoview study at 83% of the maximum predicted heart rate. Electronically signed by : Adalberto Bertrand, 06/10/2020 12:42:46
== END ==
PROVIDERS: PCP Family Medicine; Visit Provider Family Medicine
DX: R07.89 Other chest pain (principal)
CPT/HCPCS: 78452; 93017; A9502

== ENCOUNTER 2020-06-27 13:09 | Emergency (ER) | payer OTHER, SELFPAY ==
[2020-06-27] VITALS (13 sets, daily range): BP systolic 153–189; BP diastolic 82–120; PULSE 73–86; RESP 16–20; TEMP 36.8; O2SAT 97–100; BMI 31.1
--- NOTE | 2020-06-27 13:16 | XR_ITS ---
PROCEDURE: XR CHEST PORTABLE CLINICAL HISTORY: hypertension COMPARISON: CR CXR2V XR chest 2V from 07/05/2017 CR CXR2V XR chest 2V from 01/16/2018 CR XR CHEST PORTABLE from 05/24/2020 FINDINGS: The cardiomediastinal silhouette and pulmonary vascularity are within normal limits. The lungs are clear without infiltrates, suspicious nodules, or pleural effusions. Calcific tendinitis of the right shoulder. IMPRESSION: No acute findings. Dictated by: Ishaan Crystal MD 06/27/2020 13:51 Ishaan Crystal MD in [place] 06/27/2020 13:51
--- NOTE | 2020-06-27 13:17 | CT_ITS ---
PROCEDURE: CT HEAD/BRAIN WO CON CLINICAL INDICATION: headache COMPARISON: No exams were available for comparison TECHNIQUE: Axial images obtained. All CT scans at the facility use one or more dose reduction, viz: automated exposure control, ma/kV adjustment per patient size (including targeted exams where dose is matched to indication, i.e. head), or iterative reconstruction technique. FINDINGS: No midline shift, mass effect, intracranial hemorrhage, hydrocephalus, or extra-axial fluid collection is evident. The calvarium has an unremarkable appearance. No mastoid effusion. No sinus air-fluid level. IMPRESSION: No acute intracranial finding Dictated by: Ishaan Crystal MD 06/27/2020 13:49 Ishaan Crystal MD in [place] 06/27/2020 13:49
--- NOTE | 2020-06-27 13:18 | HMH.EDGENADL ---
ED Disposition Clinical Impression: Hypertensive emergency Headache Qualifiers: Headache type: other headache syndrome Qualified Code(s): G44.89 - Other headache syndrome Disposition: Home, Self-Care Condition on Discharge: Good Referrals: Terrance Ramos MD [Primary Care Provider] - 3 days Time of Disposition: 18:00 - Critical Care Critical Care Time: No Attestation: On , the high probability of a clinically significant, sudden or life threatening deterioration of the following system(s) required my full and direct attention, intervention and personal management. The time I documented below is in addition to time spent performing reported procedures but includes the following listed in this critical care notation. Medical Decision Making - Medical Records Medical records reviewed: Yes: I reviewed the patient's medical records. - Gregor Inquiry Pt receiving controlled substance: No Vital Signs: 06/27/20 13:10 06/27/20 13:44 06/27/20 14:00 Temperature 98.3 F Temperature Source Oral Pulse Rate 76 85 Pulse Rate [Radial] 86 Respiratory Rate 16 16 Blood Pressure 178/107 H 175/104 H Blood Pressure [Right Arm] 189/120 H Blood Pressure Mean 142 127 Blood Pressure Mean [Right Arm] 143 Blood Pressure Position Blood Pressure Position [Right Arm] Sitting 02 Sat by Pulse Oximetry 98 98 98 Oxygen Delivery Method Room Air 06/27/20 14:30 06/27/20 14:36 06/27/20 14:40 Temperature Temperature Source Pulse Rate 77 77 Pulse Rate [Radial] Respiratory Rate 19 Blood Pressure 175/104 H 175/100 H 167/104 H Blood Pressure [Right Arm] Blood Pressure Mean 127 137 Blood Pressure Mean [Right Arm] Blood Pressure Position Sitting Blood Pressure Position [Right Arm] 02 Sat by Pulse Oximetry 98 Oxygen Delivery Method 06/27/20 14:43 06/27/20 15:00 06/27/20 15:16 Temperature Temperature Source Pulse Rate 76 73 77 Pulse Rate [Radial] Respiratory Rate 18 18 Blood Pressure 157/99 H 175/105 H 176/100 H Blood Pressure [Right Arm] Blood Pressure Mean 123 119 Blood Pressure Mean [Right Arm] Blood Pressure Position Blood Pressure Position [Right Arm] 02 Sat by Pulse Oximetry 98 98 Oxygen Delivery Method 06/27/20 16:00 06/27/20 16:37 06/27/20 17:44 Temperature Temperature Source Pulse Rate 82 84 82 Pulse Rate [Radial] Respiratory Rate 18 20 Blood Pressure 153/82 H 153/95 H 159/92 H Blood Pressure [Right Arm] Blood Pressure Mean 106 114 Blood Pressure Mean [Right Arm] Blood Pressure Position Blood Pressure Position [Right Arm] 02 Sat by Pulse Oximetry 97 100 100 Oxygen Delivery Method - Lab Data Lab results reviewed: Yes: I reviewed the patient's lab results. Lab Results 06/27/20 13:15: WBC 7.7, RBC 4.25, Hgb 12.2, Hct 36.4 L, MCV 85.7, MCH 28.6, MCHC 33.4, RDW 14.4, Plt Count 275, MPV 7.4, Neut % (Auto) 35.7 L, Lymph % (Auto) 55.3 H, [place] % (Auto) 6.4, Eos % (Auto) 2.0, Baso % (Auto) 0.7, Neut # (Auto) 2.8, Lymph # (Auto) 4.3, [place] # (Auto) 0.5, Eos # (Auto) 0.2, Baso # (Auto) 0.1, Total Counted 100, Neutrophils % (Manual) 34 L, Lymphocytes % (Manual) 62 H, Monocytes % (Manual) 4, Platelet Estimate Normal, RBC Morphology Normal 06/27/20 13:15: Sodium 138, Potassium 4.0, Chloride 106, Carbon Dioxide 20 L, Anion Gap 16.0 H, BUN 15, Creatinine 0.60, Estimated Creat Clear 132, Estimated GFR 105, Est GFR ( Amer) 127, Glucose 141 H, Calcium 9.3, Total Bilirubin 0.3, AST 50 H, ALT 46, Alkaline Phosphatase 66, Troponin I < 0.01, Total Protein 7.9, Albumin 4.8, Globulin 3.1, Albumin/Globulin Ratio 1.5 06/27/20 15:10: Urine Color Yellow, Urine Appearance Clear, Urine pH 6.0, Ur Specific [place] >= 1.030, Urine Protein Negative, Urine Glucose (UA) Negative, Urine Ketones Negative, Urine Blood Negative, Urine Nitrate Negative, Urine Bilirubin Negative, Urine Urobilinogen 0.2, Ur Leukocyte Esterase Negative, Urine RBC None
[2020-06-27 13:29] LABS: Basophils # 0.1 K/mm3 (0-0.2); Basophils % 0.7 % (0.1-2.0); Eosinophils # 0.2 K/mm3 (0.0-0.4); Hematocrit 36.4 % (37.0-47.0); Hemoglobin 12.2 g/dL (12.2-16.2); Lymphocytes # 4.3 K/mm3 (0.7-4.5); Lymphocytes % 55.3 % (10-50); MANUAL DIFFERENTIAL MANUAL DIFFERENTIAL (MANUAL DIFF); Mean Corpuscular HGB Conc 33.4 g/dL (31.8-35.4); Mean Corpuscular Hemoglobin 28.6 pg (27.0-31.2); Mean Corpuscular Volume 85.7 fl (81-99); Mean Platelet Volume 7.4 fl (7.4-10.4); Monocytes # 0.5 K/mm3 (0.1-1.0); Monocytes % 6.4 % (1.7-9.3); Neutrophils # 2.8 K/mm3 (1.8-7.8); Neutrophils % 35.7 % (37.0-80.0); Platelet Count 275 K/mm3 (142-424); Red Blood Count 4.25 M/mm3 (4.20-5.40); Red Cell Distribution Width 14.4 % (11.5-17.5); White Blood Count 7.7 K/mm3 (4.8-10.8)
[2020-06-27 13:37] LABS: Lymphocytes % 62 % (10-50); Monocytes % 4 % (2-9); Neutrophils % 34 % (42-76); Platelet Estimate Normal; RBC Morphology Normal; Total Cells Counted 100
[2020-06-27 13:45] LABS: Alanine Aminotransferase 46 U/L (12-78); Albumin Level 4.8 g/dl (3.5-5.0); Albumin/Globulin Ratio 1.5 (1.1-1.8); Alkaline Phosphatase 66 U/L (38-126); Aspartate Amino Transferase 50 U/L (14-36); Bilirubin,Total 0.3 mg/dl (0.2-1.3); Blood Urea Nitrogen 15 mg/dl (7-17); Calcium 9.3 mg/dl (8.4-10.2); Carbon Dioxide 20 mmol/L (22.0-30.0); Chloride 106 mmol/L (98-107); Creatinine Clearance Estimated 132 mL/min (50-200); Estimated Glomerular Filt Rate 105 ml/min (>60); GFR (African American) 127 ML/MIN (>60); Globulin 3.1 g/dL (1.3-3.2); Glucose 141 mg/dl (74-100); Sodium 138 mmol/L (136-145); Total Protein,Serum 7.9 g/dl (6.3-8.2)
[2020-06-27 13:59] LABS: Troponin I < 0.01 ng/ml (0.00-0.034)
--- NOTE | 2020-06-27 14:40 | PC.NURSE ---
LABETALOL IVP GIVEN
[2020-06-27 15:22] LABS: Microscopic, Urine URINE MICROSCOPIC (MICROSCOPIC)
[2020-06-27 15:26] LABS: Appearance,Urine CLEAR (Clear); Bilirubin,Urine Negative (Negative); Blood, Urine Negative (Negative); Color,Urine YELLOW (Yellow); Glucose,Urine (UA) Negative (Negative); Ketones,Urine Negative (Negative); Leukocyte Esterase,Urine Negative (Negative); Nitrate,Urine Negative (Negative); Protein,Urine Negative (Negative); Specific Gravity, Urine >= 1.030 (1.005-1.030); Urobilinogen,Urine 0.2 EU/dl (0.2)
--- NOTE | 2020-06-27 15:58 | PC.NURSE ---
PT CONTINUES TO C/O SEVERE HEADACHE
[2020-06-27 17:05] LABS: Troponin I < 0.01 ng/ml (0.00-0.034)
--- NOTE | 2020-06-28 13:25 | ECG_ITS ---
APPROVED REPORT Exam: Resting ECG HR:79 bpm ECG Measurements Heart Rate 79 AXES NM 166 P 61 QRSd 80 QRS -7 QT 406 T 53 QTc 465 Conclusion Normal sinus rhythm Low voltage QRS Borderline ECG Electronically signed by : José Miguel Rm, 07/01/2020 14:01:50
== END 2020-06-27 18:18 | disposition home or self-care (01) ==
PROVIDERS: Emergency Provider Family Medicine; PCP Family Medicine
DX: G44.89 Other headache syndrome (principal); I16.1 Hypertensive emergency; Z86.16 Personal history of COVID-19; E78.5 Hyperlipidemia, unspecified; E11.9 Type 2 diabetes mellitus without complications; Z87.891 Personal history of nicotine dependence; F41.8 Other specified anxiety disorders; Z79.899 Other long term (current) drug therapy
CPT/HCPCS: 36415; 70450; 71045; 80053; 81001; 84484; 85007; 85025; 93005; 96372; 96375; 99283; J2405

== ENCOUNTER → 2020-09-14 13:26 | Outpatient (CLI) | payer OTHER, SELFPAY ==
--- NOTE | 2020-09-14 13:26 | CT_ITS ---
PROCEDURE: CT HEAD/BRAIN WO CON CLINICAL INDICATION: Subarachnoid hemorrhage COMPARISON: CT CT HEAD/BRAIN WO CON from 06/27/2020 TECHNIQUE: Axial images obtained. All CT scans at the facility use one or more dose reduction, viz: automated exposure control, ma/kV adjustment per patient size (including targeted exams where dose is matched to indication, i.e. head), or iterative reconstruction technique. FINDINGS: No midline shift, mass effect, intracranial hemorrhage, hydrocephalus, or extra-axial fluid collection is evident. The calvarium has an unremarkable appearance. No mastoid effusion. No sinus air-fluid level. IMPRESSION: No acute intracranial finding Dictated by: Ishaan Crystal MD 09/14/2020 17:55 Ishaan Crystal MD in [facility] 09/14/2020 17:55
== END ==
PROVIDERS: PCP Family Medicine; Visit Provider Nurse Practitioner
DX: I60.9 Nontraumatic subarachnoid hemorrhage, unspecified (principal)
CPT/HCPCS: 70450

== ENCOUNTER 2020-11-30 14:00 | Outpatient (RCR) | payer OTHER, SELFPAY ==
--- NOTE | 2020-09-28 14:55 | HMH.PTOPEV ---
PT Outpatient Evaluation Rehab PT Outpatient Evaluation Start: 09/28/20 14:39 Freq: Status: Active Protocol: Document 09/28/20 14:39 GLORIA (Rec: 09/28/20 14:54 GLORIA [id number]) Electronically Signed By Ej Matos, PT 09/28/20 14:39 Outpatient Therapy Subjective History Subjective History Patient is a 54 year old female presenting to outpatient PT with L foot ankle pain starting approximately 2 years ago of insidious onset. Most recent imaging indicates calcaneal osteophytes. Comorbiditieis include hx of RA, HTN and recent sub-arachnoid hemmorhage. Chief Complaint Pain,Stiff,Swelling Symptom Type Ache,Burning Symptoms Relieved By Rest/Positioning,Ice, Prescription Meds,Elevation Symptoms Aggravated By Standing,Physical Activity, Walking Prior Functional Limitations None Current Functional Limitations Housework,Standing,Recreation Activity,Walking,Stairs, Balance Symptom Description Intermittent Level of pain today (0-10) 0 Pain scale - at its best (0-10) 0 Pain scale - at its worst (0-10) 7 Ankle/Foot Eval Gait Observation General Gait Pattern Observation No Deviations/Normal Assistive Device Ambulation Assistive Device None Palpation Tenderness left Ankle/Foot Palpation Findings Tenderness Ankle/Foot Palpation Overall Comment Calcaneal trubercle 3/4 ROM Ankle/Foot Dorsiflexion w/Knee Extended 3 Active Range Motion (degrees) Ankle/Foot Dorsiflexion w/Knee Extended 5 Passive Range (degrees) Ankle/Foot Plantar Flexion Active Range 45 of Motion (degrees) Ankle/Foot Plantar Flexion Passive Range WNL of Motion (degrees) Ankle/Foot Eversion Active Range of 28 Motion (degrees) Ankle/Foot Eversion Passive Range of WNL Motion (degrees) Ankle/Foot Inversion Active Range of 35 Motion (degrees) Ankle/Foot Inversion Passive Range of WNL Motion (degrees) Ankle/Foot ROM Limitations Soft Tissue Tightness Great Toe ROM Reason Not Measured Within Functional Limits MMT Ankle Dorsiflexion Strength Grade 4 Good Ankle Plantarflexion Strength Grade 4 Good Foot Eversion Strength Grade 4 Good Foot Inversion Strength Grade 4- Good- Special Tests Ankle Anterior Drawer Test Negative Left Ankle Eversion Test Negative Left Talar Tilt Test
== END 2020-11-30 14:05 | disposition home or self-care (01) ==
LOC: PT 14:00
PROVIDERS: PCP Family Medicine; Visit Provider Nurse Practitioner
DX: M72.2 Plantar fascial fibromatosis (principal)
CPT/HCPCS: 97033; 97110; 97140; 97163; 97164; 97760

== ENCOUNTER 2020-11-30 15:00 | Outpatient (RCR) | payer OTHER, SELFPAY ==
--- NOTE | 2020-10-14 17:02 | HMH.SLAPHASI ---
Speech & Language Evaluation Speech/Language Aphasia Evaluation Start: 10/13/20 14:20 Freq: once Status: Complete Protocol: Document 10/13/20 14:20 VINICIO (Rec: 10/13/20 14:51 VINICIO [id number]) Aphasia Assessment/Goals/Plan Assessment Date of Evaluation: 10/13/20 Evaluation Type Initial Certification Assessment/Problems Cognitive complaints Impaired memory Personal history of subarachnoid hemorrhage Mood disorder Does Patient Qualify for Service Yes Qualify/Failure Comment Based on the results of today' s evaluation, Anna qualifies for speech therapy services to target memory, word-finding, and functional cognitive skills. Plan Pt will be seen # times/week 2 for # weeks 12 Anticipate reaching STG in # weeks 8 Anticipate reaching LTG in # weeks 12 Pt/Guardian verbally ack understanding Yes of dx/prognosis/goals Pt/Guardian verbally ack understanding Yes of/consent to tx prog G -code Required No STG-Attending/Orientation/Memory Delayed Recall 90 Attention/Concentration 90 Memory Recall 90 STG-Comparative/Linguistic Skills Thought Organization 90 Categorization Ability 90 STG-Divergent Thinking Deductive Reasoning 90 Skilled Nursing Goals Increase cognitive skills to communicate Yes w/family & friends Education Instructions provided Instructions for HEP will be provided to patient following each session. Pt/Caregiver Able to Recall Information Able to recall/restate Speech & Language HPI History Present Illness Description of Patient Problem Difficulty with memory and concentration for ~2 years. Had a CVA in June but had difficulty with memory and concentration prior to CVA. Pt/Caregiver Concerns Memory/functioning Rehab Services Assessed Speech therapy Vision Visual Difficulty Impaired Comment Wears glasses when reading Language Primary Language Greek [place] Lang/Spoken in Home Greek Aphasia Evaluations Communication Speech Intelligibility WFL Auditory Comprehension Yes: Word Level Sentences Following Directions No: Paragraph AC Comment
== END 2020-11-30 15:05 | disposition home or self-care (01) ==
LOC: ST 15:00
PROVIDERS: PCP Family Medicine; Visit Provider Specialist
DX: R41.9 Unspecified symptoms and signs involving cognitive functions and awareness (principal); R41.3 Other amnesia; F39 Unspecified mood [affective] disorder; Z86.79 Personal history of other diseases of the circulatory system
CPT/HCPCS: 92523; 97129; 97130

== ENCOUNTER 2020-12-25 18:19 | Emergency (ER) | payer OTHER, SELFPAY ==
[2020-12-25 18:21] VITALS: BP 159/105; PULSE 74; RESP 23; TEMP 36.8; O2SAT 99; BMI 31.4
--- NOTE | 2020-12-25 18:21 | HMH.EDUTC ---
[facility] Disposition <Juan M Zacarias - Last Filed: 12/25/20 19:23> Condition on Discharge: Good <Shreyas Roman - Last Filed: 12/26/20 12:49> Clinical Impression: Atypical chest pain Thoracic back pain Qualifiers: Chronicity: acute Back pain laterality: unspecified Qualified Code(s): M54.6 - Pain in thoracic spine Disposition: Home, Self-Care Instructions: DI for Atypical Chest Pain Additional Instructions: You have been evaluated for atypical chest and back pain. You were found to have a small lesion on your left lung, called a granuloma. No signs of pneumonia, abnormality of the aorta, or heart attack. Take Tylenol and Motrin for pain. Follow-up with your primary care doctor. Return to the emergency department for any new or worsening symptoms. Referrals: Terrance Ramos MD [Primary Care Provider] - Medical Decision Making - Gregor Thomas Pt receiving controlled substance: No <Juan M Zacarias - Last Filed: 12/25/20 19:23> - Medical Records Medical records reviewed: No: I reviewed the patient's medical records. - Gregor Thomas Pt receiving controlled substance: No - Lab Data Result diagrams: 12/25/20 19:00 12/25/20 19:00 <Shreyas Roman - Last Filed: 12/26/20 12:49> Vital Signs: 12/25/20 18:21 12/25/20 19:08 12/25/20 20:00 Temperature 98.2 F 97.7 F Temperature Source Oral Oral Pulse Rate Pulse Rate [Left] 74 72 Respiratory Rate 23 17 Blood Pressure 151/94 H Blood Pressure [Right Arm] 159/105 H 161/95 H Blood Pressure Mean [Right Arm] 123 117 Blood Pressure Source Blood Pressure Source [Right Arm] Automatic Cuff Blood Pressure Position Blood Pressure Position [Right Arm] Sitting 02 Sat by Pulse Oximetry 99 98 Oxygen Delivery Method Room Air 12/25/20 21:00 12/25/20 22:00 12/25/20 23:04 Temperature 97.9 F Temperature Source Oral Pulse Rate 95 H Pulse Rate [Left] 75 73 Respiratory Rate 15 15 16 Blood Pressure 111/75 Blood Pressure [Right Arm] 123/76 106/65 L Blood Pressure Mean [Right Arm] 91 78 Blood Pressure Source Automatic Cuff Blood Pressure Source [Right Arm] Automatic Cuff Automatic Cuff Blood Pressure Position Sitting Blood Pressure Position [Right Arm] Supine Supine 02 Sat by Pulse Oximetry 94 L 95 Oxygen Delivery Method Room Air Room Air Room Air - Lab Data Lab Results 12/25/20 19:00: WBC 6.6, RBC 4.62, Hgb 12.4, Hct 38.9, MCV 84.2, MCH 26.9 L, MCHC 31.9, RDW 16.4, Plt Count 294, MPV 7.5, Neut % (Auto) 64.5, Lymph % (Auto) 27.7, [place] % (Auto) 5.6, Eos % (Auto) 1.4, Baso % (Auto) 0.8, Neut # (Auto) 4.3, Lymph # (Auto) 1.8, [place] # (Auto) 0.4, Eos # (Auto) 0.1, Baso # (Auto) 0.1 12/25/20 19:00: Sodium 142, Potassium 3.8, Chloride 104, Carbon Dioxide 28, Anion Gap 13.8, BUN 11, Creatinine 0.70, Estimated Creat Clear 105, Estimated GFR 87, Est GFR ( Amer) 106, Glucose 161 H, Calcium 9.3, Troponin I < 0.01 12/25/20 22:00: Troponin I < 0.01 Orders (Tests/Meds): ED MEDICATIONS Discontinued Medications Generic Name Dose Route Start Last Admin Trade Name Octavio PRN Reason Stop Dose Admin Aspirin 325 mg 12/25/20 19:01 12/25/20 19:06 Aspirin 325mg Tablet PO 12/25/20 19:02 Not Given ONCE ONE Aspirin 324 mg 12/25/20 19:03 12/25/20 19:05 Aspirin 81mg Chewable Tablet PO 12/25/20 19:04 324 mg ONCE ONE Administration Iopamidol 100 ml 12/25/20 20:00 12/25/20 20:01 Iopamidol-370 (76%);100ml Bottle IV 12/25/20 20:01 100 ml ONCE ONE Administration Labetalol HCl 10 mg 12/25/20 19:46 12/25/20 20:00 Labetalol 5mg/Ml 20ml Mdv IV 12/25/20 19:47 10 mg ONCE ONE Administration Morphine Sulfate 4 mg 12/25/20 19:46 12/25/20 20:00 Morphine 4mg/Ml Syringe IV 12/25/20 19:47 4 mg ONCE ONE Administration Ondansetron HCl 4 mg 12/25/20 19:46 12/25/20 20:00 Ondansetron 4mg/2ml Vial IV 12/25/20 19:47 4 mg ONCE ONE Administration Sodium Chloride 40 ml 12/25/20 20:00 12/25/20 20:00
--- NOTE | 2020-12-25 18:59 | ECG_ITS ---
APPROVED REPORT Exam: Resting ECG HR:71 bpm ECG Measurements Heart Rate [address] 188 P 44 QRSd 154 QRS 86 QT 472 T 3 QTc 512 Conclusion Normal sinus rhythm Right bundle branch block Inferior infarct, age undetermined Abnormal ECG Electronically signed by : José Miguel Rm MD 12/27/2020 21:23:12
--- NOTE | 2020-12-25 18:59 | XR_ITS ---
PROCEDURE INFORMATION: Exam: XR Chest Exam date and time: 12/25/2020 6:59 PM Age: 55 years old Clinical indication: Pain; Right-sided; Additional info: Chest pain right side TECHNIQUE: Imaging protocol: XR of the chest. Views: 2 views. COMPARISON: CR XR CHEST PORTABLE 06/27/2020 1:21 PM FINDINGS: Lungs: Normal. Pleural spaces: Unremarkable. No pleural effusion. No pneumothorax. Heart/Mediastinum: Normal. Bones/joints: No acute abnormality. Organs: Cholecystectomy clips within the right upper abdomen. IMPRESSION: No acute cardiopulmonary abnormality.
[2020-12-25 19:08] VITALS: BP 161/95; PULSE 72; RESP 17; TEMP 36.5; O2SAT 98; BMI 25.8
[2020-12-25 19:31] LABS: Basophils # 0.1 K/mm3 (0-0.2); Basophils % 0.8 % (0.1-2.0); Eosinophils # 0.1 K/mm3 (0.0-0.4); Eosinophils % 1.4 % (0.1-12.0); Hematocrit 38.9 % (37.0-47.0); Hemoglobin 12.4 g/dL (12.2-16.2); Lymphocytes # 1.8 K/mm3 (0.7-4.5); Lymphocytes % 27.7 % (10-50); Mean Corpuscular HGB Conc 31.9 g/dL (31.8-35.4); Mean Corpuscular Hemoglobin 26.9 pg (27.0-31.2); Mean Corpuscular Volume 84.2 fl (81-99); Mean Platelet Volume 7.5 fl (7.4-10.4); Monocytes # 0.4 K/mm3 (0.1-1.0); Monocytes % 5.6 % (1.7-9.3); Neutrophils # 4.3 K/mm3 (1.8-7.8); Neutrophils % 64.5 % (37.0-80.0); Platelet Count 294 K/mm3 (142-424); Red Blood Count 4.62 M/mm3 (4.20-5.40); Red Cell Distribution Width 16.4 % (11.5-17.5); White Blood Count 6.6 K/mm3 (4.8-10.8)
[2020-12-25 19:35] LABS: Anion Gap 13.8 mEq/L (5-15); Blood Urea Nitrogen 11 mg/dl (7-17); Calcium 9.3 mg/dl (8.4-10.2); Carbon Dioxide 28 mmol/L (22.0-30.0); Chloride 104 mmol/L (98-107); Creatinine Clearance Estimated 105 mL/min (50-200); Estimated Glomerular Filt Rate 87 ml/min (>60); GFR (African American) 106 ML/MIN (>60); Glucose 161 mg/dl (74-100); Potassium 3.8 mmoL/L (3.5-5.1); Sodium 142 mmol/L (136-145)
--- NOTE | 2020-12-25 19:38 | CT_ITS ---
PROCEDURE INFORMATION: Exam: CTA Chest With Contrast Exam date and time: 12/25/2020 7:38 PM Age: 55 years old Clinical indication: Right-sided; Patient HX: Right sided back pain into right side of chest; Additional info: Back pain into chest, R/O aortic dissection TECHNIQUE: Imaging protocol: Computed tomographic angiography of the chest with contrast. 3D rendering (Not supervised by radiologist): MIP and/or 3D reconstructed images were created by the technologist. Radiation optimization: All CT scans at this facility use at least one of these dose optimization techniques: automated exposure control; mA and/or kV adjustment per patient size (includes targeted exams where dose is matched to clinical indication); or iterative reconstruction. Contrast material: ISOVUE 370; Contrast volume: 100 ml; Contrast route: INTRAVENOUS (IV); COMPARISON: CR XR CHEST 2V 12/25/2020 7:07 PM FINDINGS: Pulmonary arteries: No acute pulmonary emboli. Aorta: Unremarkable. No aortic aneurysm. No aortic dissection. Lungs: Calcified granuloma within the posterior left upper lobe. Calcified granuloma within the periphery of the right lower lobe. Pleural spaces: Unremarkable. No pneumothorax. No pleural effusion. Heart: Unremarkable. No cardiomegaly. No pericardial effusion. Lymph nodes: Calcified left hilar lymph nodes, compatible with prior granulomatous disease. Gallbladder and bile ducts: Gallbladder surgically absent. Bones/joints: Multilevel thoracic spine degenerative disc space narrowing. Soft tissues: Unremarkable. IMPRESSION: 1. No acute pulmonary emboli. 2. No acute thoracic abnormality.
--- NOTE | 2020-12-25 19:39 | HMH.EDGENADL ---
ED Disposition Condition on Discharge: Fair - Critical Care Critical Care Time: No <IanJuan M lundberg - Last Filed: 12/25/20 20:02> Condition on Discharge: Good Time of Disposition: 22:37 - Critical Care Critical Care Time: No <Sunshine Pedraza - Last Filed: 12/25/20 22:38> Clinical Impression: Atypical chest pain Thoracic back pain Qualifiers: Chronicity: acute Back pain laterality: unspecified Qualified Code(s): M54.6 - Pain in thoracic spine Disposition: Home, Self-Care Instructions: DI for Atypical Chest Pain Additional Instructions: You have been evaluated for atypical chest and back pain. You were found to have a small lesion on your left lung, called a granuloma. No signs of pneumonia, abnormality of the aorta, or heart attack. Take Tylenol and Motrin for pain. Follow-up with your primary care doctor. Return to the emergency department for any new or worsening symptoms. Referrals: Terrance Ramos MD [Primary Care Provider] - Attestation: On 12/25/20, the high probability of a clinically significant, sudden or life threatening deterioration of the following system(s) required my full and direct attention, intervention and personal management. The time I documented below is in addition to time spent performing reported procedures but includes the following listed in this critical care notation. Medical Decision Making - Medical Records Medical records reviewed: Yes: I reviewed the patient's medical records. MR Comment: Reviewed previous cardiovascular testing. Coronary artery CT 07/27/2017 with a score of 0. Myoview stress test 06/10/2020. See result below. - Gregor Inquiry Pt receiving controlled substance: Yes Gregor was queried for this patient: Yes Risks and benefits of using a controlled substance: were not discussed with pt by me - Lab Data Result diagrams: 12/25/20 19:00 12/25/20 19:00 - DAVID Score for Non-Stemi Age of Patient: 50-59 years old Heart Rate: 70-89 bpm Systolic Blood Pressure: 140-159 mmHg Serum Creatinine: 0.40-0.79 mg/dl CHF [place] Class: I-No CHF Other Risk Factors: None Non-Stemi Risk Score: 78 <Juan M Zacarias - Last Filed: 12/25/20 20:02> - Lab Data Result diagrams: 12/25/20 19:00 12/25/20 19:00 <Sunshine Pedraza - Last Filed: 12/25/20 22:38> Vital Signs: 12/25/20 18:21 12/25/20 19:08 12/25/20 20:00 Temperature 98.2 F 97.7 F Temperature Source Oral Oral Pulse Rate [Left] 74 72 Respiratory Rate 23 17 Blood Pressure 151/94 H Blood Pressure [Right Arm] 159/105 H 161/95 H Blood Pressure Mean [Right Arm] 123 117 Blood Pressure Source [Right Arm] Automatic Cuff Blood Pressure Position [Right Arm] Sitting 02 Sat by Pulse Oximetry 99 98 Oxygen Delivery Method Room Air - Lab Data Lab Results 12/25/20 19:00: WBC 6.6, RBC 4.62, Hgb 12.4, Hct 38.9, MCV 84.2, MCH 26.9 L, MCHC 31.9, RDW 16.4, Plt Count 294, MPV 7.5, Neut % (Auto) 64.5, Lymph % (Auto) 27.7, [place] % (Auto) 5.6, Eos % (Auto) 1.4, Baso % (Auto) 0.8, Neut # (Auto) 4.3, Lymph # (Auto) 1.8, [place] # (Auto) 0.4, Eos # (Auto) 0.1, Baso # (Auto) 0.1 12/25/20 19:00: Sodium 142, Potassium 3.8, Chloride 104, Carbon Dioxide 28, Anion Gap 13.8, BUN 11, Creatinine 0.70, Estimated Creat Clear 105, Estimated GFR 87, Est GFR ( Amer) 106, Glucose 161 H, Calcium 9.3, Troponin I < 0.01 12/25/20 22:00: Troponin I < 0.01 Orders (Tests/Meds): ED MEDICATIONS Discontinued Medications Generic Name Dose Route Start Last Admin Trade Name Richq PRN Reason Stop Dose Admin Aspirin 325 mg 12/25/20 19:01 12/25/20 19:06 Aspirin 325mg Tablet PO 12/25/20 19:02 Not Given ONCE ONE Aspirin 324 mg 12/25/20 19:03 12/25/20 19:05 Aspirin 81mg Chewable Tablet PO 12/25/20 19:04 324 mg ONCE ONE Administration Iopamidol 100 ml 12/25/20 20:00 12/25/20 20:01 Iopamidol-370 (76%);100ml Bottle IV 12/25/20 20:01 100 ml ONCE ONE Administration Labetalol HCl 10 mg 12/25/20 19:46 1
[2020-12-25 19:47] LABS: Troponin I < 0.01 ng/ml (0.00-0.034)
[2020-12-25 20:00] VITALS: BP 151/94
[2020-12-25 21:00] VITALS: BP 123/76; PULSE 75; RESP 15; O2SAT 94
[2020-12-25 22:00] VITALS: BP 106/65; PULSE 73; RESP 15; O2SAT 95
[2020-12-25 22:30] LABS: Troponin I < 0.01 ng/ml (0.00-0.034)
[2020-12-25 23:04] VITALS: BP 111/75; PULSE 95; RESP 16; TEMP 36.6; O2SAT 97
== END 2020-12-25 23:04 | disposition home or self-care (01) ==
LOC: UTC 18:25 → ER 18:47
PROVIDERS: Emergency Provider Emergency Medicine; PCP Family Medicine
DX: R07.89 Other chest pain (principal); Z87.891 Personal history of nicotine dependence; E11.9 Type 2 diabetes mellitus without complications; E78.5 Hyperlipidemia, unspecified; I10 Essential (primary) hypertension; M19.90 Unspecified osteoarthritis, unspecified site; M54.6 Pain in thoracic spine
CPT/HCPCS: 36415; 71046; 71275; 80048; 84484; 85025; 93005; 96374; 96375; 99283; J2405; Q9967

== ENCOUNTER → 2021-03-01 17:34 | Outpatient (CLI) | payer OTHER, SELFPAY ==
[2021-03-01 18:43] LABS: Adenovirus,PCR Not Detected (NotDetected); Bordetella Pertussis Not Detected (NotDetected); Chlamydophila Pneumoniae, PCR Not Detected (NotDetected); Coronavirus 19, PCR Not Detected (NotDetected); Coronavirus 229E Not Detected (NotDetected); Coronavirus NL63 Not Detected (NotDetected); Coronavirus OC43 Not Detected (NotDetected); Coronovirus HKU1,PCR Not Detected (NotDetected); Human Metapneumovirus Not Detected (NotDetected); Influenza A, PCR Not Detected (NotDetected); Influenza AH1, 2009 Not Detected (NotDetected); Influenza AH1, PCR Not Detected (NotDetected); Influenza AH3,PCR Not Detected (NotDetected); Influenza B, PCR Not Detected (NotDetected); Mycoplasma Pneumoniae, PCR Not Detected (NotDetected); Parainfluenza 1, PCR Not Detected (NotDetected); Parainfluenza 2, PCR Not Detected (NotDetected); Parainfluenza 3, PCR Not Detected (NotDetected); Respiratory Syncytial Virus Not Detected (NotDetected); Rhinovirus/Enterovirus Not Detected (NotDetected)
[2021-03-01 18:59] LABS: Basophils % 0.6 % (0.1-2.0); Eosinophils # 0.1 K/mm3 (0.0-0.4); Eosinophils % 2.3 % (0.1-12.0); Hematocrit 36.4 % (37.0-47.0); Hemoglobin 12.9 g/dL (12.2-16.2); Lymphocytes % 18.6 % (10-50); Mean Corpuscular HGB Conc 35.4 g/dL (31.8-35.4); Mean Corpuscular Hemoglobin 29.7 pg (27.0-31.2); Mean Platelet Volume 7.7 fl (7.4-10.4); Monocytes # 0.4 K/mm3 (0.1-1.0); Neutrophils # 3.9 K/mm3 (1.8-7.8); Neutrophils % 71.4 % (37.0-80.0); Platelet Count 264 K/mm3 (142-424); Red Blood Count 4.33 M/mm3 (4.20-5.40); Red Cell Distribution Width 14.8 % (11.5-17.5); White Blood Count 5.5 K/mm3 (4.8-10.8)
[2021-03-01 21:08] LABS: Parainfluenza 4, PCR Detected (NotDetected)
[2021-03-02 01:08] LABS: Strep Scrn Group A (Rapid) Negative (Negative)
== END ==
PROVIDERS: PCP Family Medicine; Visit Provider Nurse Practitioner
DX: Z20.822 Contact with and (suspected) exposure to COVID-19 (principal); J20.4 Acute bronchitis due to parainfluenza virus
CPT/HCPCS: 36415; 85025; 87430; 87581; 87632; 87798; C9803; U0003; U0005

== ENCOUNTER → 2022-01-09 10:04 | Outpatient (CLI) | payer OTHER, SELFPAY | PROVIDERS: PCP Family Medicine; Visit Provider Family Medicine | DX: G47.8 Other sleep disorders (principal); G47.33 Obstructive sleep apnea (adult) (pediatric); G47.36 Sleep related hypoventilation in conditions classified elsewhere; R06.83 Snoring | CPT/HCPCS: G0399 ==

== ENCOUNTER 2022-09-14 06:05 | Emergency (ER) | payer OTHER, SELFPAY ==
[2022-09-14 06:07] VITALS: BP 154/91; PULSE 79; RESP 16; TEMP 36.7; O2SAT 98; BMI 29.0
--- NOTE | 2022-09-14 06:40 | PC.NURSE ---
Pt gone to RAD
--- NOTE | 2022-09-14 06:44 | PC.NURSE ---
Pt returned from RAD
--- NOTE | 2022-09-14 06:48 | XR_ITS ---
FINAL REPORT CLINICAL HISTORY: lt wrist pain COMPARISON: 03/21/2019 FINDINGS: LEFT WRIST SERIES Three views of the left wrist were obtained. There is no acute fracture or dislocation. The joint spaces are preserved. There is no soft tissue abnormality. There is a chronic calcification adjacent to the distal ulna. IMPRESSION: No acute bony abnormality. Reviewed, Interpreted and Dictated by Gopi Campoverde III, MD Transcribed by Yamila Kessler Authenticated and [facility]
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
[2022-09-14 07:00] VITALS: BP 149/94; PULSE 74; O2SAT 98
--- NOTE | 2022-09-14 07:00 | PC.NURSE ---
Assumed pt. care
--- NOTE | 2022-09-14 07:16 | PC.NURSE ---
Notified MD of patient's pain. V/O for 5mg PO [place].
[2022-09-14 07:30] VITALS: BP 161/90; PULSE 77; O2SAT 98
--- NOTE | 2022-09-14 07:30 | PC.NURSE ---
radiology contacted for results update, in lock status at this time.
--- NOTE | 2022-09-14 07:43 | PC.NURSE ---
radiology contacted, for further information on films, Carlos will have someone call me back with information.
--- NOTE | 2022-09-14 07:48 | PC.NURSE ---
per radiology films are in lock status at this time
[2022-09-14 08:00] VITALS: BP 145/92; PULSE 75; O2SAT 98
--- NOTE | 2022-09-14 08:07 | PC.NURSE ---
pt and family updated on poc, blanket given, no other needs at this time
--- NOTE | 2022-09-14 08:12 | PC.NURSE ---
preliminary report given to
--- NOTE | 2022-09-14 08:21 | PC.NURSE ---
left wrist velcro splint applied
[2022-09-14 08:34] VITALS: BP 138/88; PULSE 75; RESP 16; TEMP 36.7; O2SAT 97
--- NOTE | 2022-09-14 09:00 | PC.NURSE ---
preliminary rad reports being sent to
== END 2022-09-14 09:11 | disposition home or self-care (01) ==
PROVIDERS: Emergency Provider Emergency Medicine; PCP Family Medicine
DX: M19.032 Primary osteoarthritis, left wrist (principal); M06.9 Rheumatoid arthritis, unspecified; Z87.891 Personal history of nicotine dependence
CPT/HCPCS: 73110; 99283; 99284

== ENCOUNTER 2023-11-04 20:04 | Emergency (ER) | payer OTHER, SELFPAY ==
[2023-11-04 20:05] VITALS: BP 173/108; PULSE 87; RESP 16; TEMP 36.8; O2SAT 98; BMI 30.7
--- NOTE | 2023-11-04 20:20 | XR_ITS ---
PROCEDURE INFORMATION: Exam: XR Right Shoulder Exam date and time: 11/04/2023 8:19 PM Age: 57 years old Clinical indication: Pain; Shoulder; Right; Additional info: Atraumatic R shoulder pain TECHNIQUE: Imaging protocol: Radiologic exam of the right shoulder. Views: 2 or more views. Total images: 3 COMPARISON: CT ANGIO CHEST 12/25/2020 7:53 PM FINDINGS: Bones/joints: No acute fracture, joint dislocation, or AC joint separation. Subacromial distance is maintained. Small enthesophyte on the greater tuberosity. Soft tissue calcification cephalad to the greater tuberosity implying chronic calcific tendinopathy. No concerning bone lesions. Age-appropriate joint spaces. No significant degenerative arthropathy. Soft tissues: Unremarkable soft tissues. IMPRESSION: 1. No acute osseous abnormality. 2. Chronic calcific tendinopathy
--- NOTE | 2023-11-04 20:30 | HMH.EDGENADL ---
Discharge Plan Disposition Patient Disposition: Home, Self-Care Prescriptions Prescriptions: New prednisone 20 mg tablet 40 mg PO DAILY 5 Days Qty: 10 0RF No Action hydroxychloroquine 200 mg tablet 200 mg PO BID 30 Days Qty: 60 Patient Comments: alprazolam 0.5 mg tablet 0.5 mg PO TID 30 Days Qty: 90 Patient Comments: atorvastatin 10 mg tablet 10 mg PO DAILY gabapentin 100 mg capsule 100 mg PO TID citalopram 10 mg tablet 10 mg PO DAILY diclofenac sodium 1 % gel topical prednisone 20 mg tablet 20 mg PO DAILY PRN Actemra ACTPen 162 mg/0.9 mL pen injector 162 mg SQ WEEKLY Referrals Follow up/Referrals: Jefferson Ramos MD [Primary Care Provider] - See instructions Jacek Chou DO [Staff Physician] - See instructions Activity Restrictions/Add. Instructions Additional Instructions/Restrictions: Call your family doctor to establish care for this visit to the emergency department and schedule follow-up within 48 hours to ensure improvement. If you have any worsening of your condition or any other concerning signs or symptoms, return to the emergency department or your primary care doctor for further evaluation. Clinical Impressions Clinical Impression: Acute pain of right shoulder Print Language Print Language: Honduran Discharge ED Provider: Teddy Clemons General Adult HPI General Chief complaint: PAIN Stated complaint: right arm pain been hurting for days Time Seen by Provider: 11/04/23 20:11 Mode of Arrival: Ambulatory Source of Information: Patient Limitations: Physical Limitations Description of Symptoms (Recalled from ER Triage Doc. by RN): Pt presents to ED for R shoulder/arm pain. NKI. Pt states she has RA and does take meds. Pt rates pain 8/10 at this time. Pt is A&O*4. History of Present Illness HPI narrative: Please note that above description of symptoms, in this electronic medical record under categorization of recalled from ER triage doctor by RN are reflective of an initial nursing assessment, however, is not reflective of my full history and physical exam that was personally taken and clarified. Consequentially, this preceding description of symptoms, which may include the patient's categorized chief complaint in the EMR, do not reflect my personal clinical impression, and the ultimate description of history of present illness and patient stated complaints should be deferred to this section of the note. Unless stated otherwise or congruent with this section of the note, additional signs, symptoms, or incongruence should be interpreted as inaccurate with my clinical impression. Related Data Home Medications ?Medication ?Instructions ?Recorded ?Confirmed alprazolam 0.5 mg tablet 0.5 mg PO TID Depression 30 days 07/05/17 10/09/23 ##90 hydroxychloroquine 200 mg tablet 200 mg PO BID Arthritis 30 days 07/05/17 10/09/23 ##60 atorvastatin 10 mg tablet 10 mg PO DAILY Cholesterol 11/03/19 10/09/23 gabapentin 100 mg capsule 100 mg PO TID Pain 02/24/20 10/09/23 citalopram 10 mg tablet 10 mg PO DAILY 10/09/23 10/09/23 diclofenac sodium 1 % topical gel topical 10/09/23 10/09/23 prednisone 20 mg tablet 20 mg PO DAILY PRN 10/09/23 tocilizumab 162 mg/0.9 mL 162 mg SQ WEEKLY 10/09/23 10/09/23 subcutaneous pen injector (Actemra ACTPen) Previous Rx's ?Medication ?Instructions ?Recorded prednisone 20 mg tablet 40 mg (2 x 20 mg) PO DAILY 5 days 11/04/23 #10 tabs Allergies Allergy/AdvReac Type Severity Reaction Status Date / Time adalimumab [From Humira] Allergy Mild Hives Verified 10/09/23 09:03 [facility] Disclaimer: The information contained in this section may have been updated after the patient was seen, as this information can be updated by other users. Medical History (Updated 11/04/23 @ 21:48 by Teddy Clemons MD) History of mood disorder Typical angina Subarachnoid hemorrhage Surgical History (Updated 10/09/23 @ 09:15 by Thao Torres) History of tubal ligation History of cholecystectomy Family History (Updated 10/09/23 @ 09:17 by Thao Torres) Other COPD (chronic obstructive pulmonary disease) Coronary artery disease Diabetes Social History (Updated 10/09/23 @ 09:16 by Thao Torres) Smoking Status: Unknown if ever smoked smoking status stop date: 1989 alcohol intake: current alcohol intake frequency: a few times a month counseling provided: none substance use type: marijuana current occupational status: unemployed Travel in the last 8 weeks: None household members: spouse and children housing: house marital status: number of children: 4 caffeine: Yes ROS Obtained: Yes All systems reviewed & no additional complaints except as documented Physical Exam General General appearance: alert Head Head exam: atraumatic and normocephalic Eye Eye exam: Present normal appearance, PERRL and EOMI Neck Neck exam: Present normal inspection, full ROM and trachea midline Respiratory Respiratory exam: Present normal lung sounds bilaterally; Absent respiratory distress, wheezes, stridor, accessory muscle use or prolonged expiratory phase Cardiovascular Cardiovascular exam: Present other (Pulses equal symmetric in upper and lower extremities) Abdominal Exam Abdominal exam: Present soft; Absent distention, tenderness or pulsatile mass Extremities Exam Extremities exam: Present tenderness (With range of motion on external rotation right shoulder.) and other (No obvious swelling, or deformity. She does have tenderness anterior aspect of right shoulder); Absent edema Neurological Exam Neurological exam: Present alert, oriented X3 and CN II-XII intact; Absent motor sensory deficit Skin Skin exam: Present warm and dry; Absent diaphoresis or erythema Medical Decision Making Medical Records Medical records reviewed: Yes I reviewed the patient's medical records. Gregor Inquiry Pt receiving controlled substance: No Gregor was queried for this patient: No Vital Signs: 11/04/23 20:05 Temperature 98.2 F Temperature Source Oral Pulse Rate [Left] 87 Respiratory Rate 16 Blood Pressure [Right Arm] 173/108 H Blood Pressure Mean [Right Arm] 129 02 Sat by Pulse Oximetry 98 Oxygen Delivery Method Room Air Orders (Tests/Meds): ED MEDICATIONS Discontinued Medications Generic Name Dose Route Start Last Admin Trade Name Octavio PRN Reason Stop Dose Admin Dexamethasone 10 mg 11/04/23 20:20 11/04/23 20:33 Dexamethasone 4mg Tablet PO 11/04/23 20:21 10 mg ONCE ONE Administration Ketorolac Tromethamine 15 mg 11/04/23 20:20 11/04/23 20:34 Ketorolac 30mg/Ml Vial IV 11/04/23 20:21 15 mg ONCE ONE Administration ORDERS Category Date Time Status Shoulder XR right miminum 2 views [XR shoulder RT min Exams 11/04/23 20:20 Taken 2V] Stat Medical Decision Narrative: 57-year-old female history of RA presenting with right shoulder pain. Atraumatic, been going on for 5 days, starts in the right shoulder, radiates down to the right elbow. No fevers, chills, red hot swollen joints, also denies medication noncompliance. Pain is mild in intensity, moderate with range of motion. Patient has not taken anything for the pain. History obtained to patient. On arrival, patient hemodynamically stable and very well-appearing. Normal-appearing joint as compared to the left. Right upper extremity is tender with external rotation right shoulder, no elbow tenderness or any tenderness distally. Differential includes sprain, strain, rotator cuff injury, rheumatoid flare, among others. Patient given Toradol and Decadron. X-rays obtained. On independent rotation of x-rays, no acute bony abnormality. No obvious joint effusion. 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 Patient's internal rotation and shoulder extension and flexion nontender, but external rotation is exquisitely tender. Patient already has a sling, I feel this is appropriate. Given orthopedic follow-up and PT recommendations. Prednisone for home-going. Because patient at baseline without signs or symptoms of clinical decompensation, deemed appropriate for discharge. Results were relayed to patient who voiced understanding and were agreeable to outpatient management and follow up. I discussed my clinical impression with patient and answered all questions. At this time, the evidence for any other entities in the differential is insufficient to warrant any further testing or ED observation. This was explained as well. Advisory was given that persistent or worsening symptoms require further evaluation. I confirmed the understanding of this discussion. Warehouse Administrator disclaimer Much of this encounter note is an electronic civil clerk spoken language to printed text. Electronic civil clerk of the spoken language may permit errors. Although I have reviewed the note, some errors may still exist. Critical Care Critical Care Time Critical Care Time: No
[2023-11-04] MEDS: DEXAMETHASONE 4MG TABLET 10 MG PO (20:33)
[2023-11-04] MEDS: KETOROLAC 30MG/ML VIAL 15 MG IV (20:34)
[2023-11-04 21:51] VITALS: BP 124/80; PULSE 87; RESP 18; TEMP 36.6; O2SAT 98
== END 2023-11-04 21:56 | disposition home or self-care (01) ==
PROVIDERS: Emergency Provider Emergency Medicine; PCP Psychiatry & Neurology Sleep Medicine
DX: M25.511 Pain in right shoulder (principal); M06.9 Rheumatoid arthritis, unspecified
CPT/HCPCS: 73030; 96374; 99284; J1885; J8540

== ENCOUNTER 2024-02-06 01:47 | Emergency (ER) | payer OTHER, SELFPAY ==
[2024-02-06 01:56] VITALS: BP 165/108; PULSE 97; RESP 18; TEMP 36.6; O2SAT 99; BMI 30.2
--- NOTE | 2024-02-06 01:57 | ED_ITS ---
Discharge Plan Disposition Patient Disposition: Home, Self-Care Condition: Good Prescriptions Prescriptions: New prednisone 50 mg tablet 50 mg PO DAILY 5 Days Qty: 5 0RF No Action hydroxychloroquine 200 mg tablet 200 mg PO BID 30 Days Qty: 60 Patient Comments: alprazolam 0.5 mg tablet 0.5 mg PO TID 30 Days Qty: 90 Patient Comments: atorvastatin 10 mg tablet 10 mg PO DAILY gabapentin 100 mg capsule 300 mg PO BID citalopram 10 mg tablet 10 mg PO DAILY diclofenac sodium 1 % gel topical prednisone 20 mg tablet 20 mg PO DAILY PRN Actemra ACTPen 162 mg/0.9 mL pen injector 162 mg SQ WEEKLY duloxetine 30 mg capsule,delayed release(DR/EC) 30 mg PO ONCE Patient Comments: TAKE 1 CAPSULE BY MOUTH DAILY Referrals Follow up/Referrals: Terrance Ramos MD [Primary Care Provider] - See instructions Activity Restrictions/Add. Instructions Additional Instructions/Restrictions: Please follow-up with your primary care provider. Please return to the emergency department if you develop any new or worsening symptoms or become concerned for your health. Please take steroids as prescribed, starting jennifer rrow. The dose that you got today will cover you for 24 hours. Clinical Impressions Clinical Impression: Acute pain of left shoulder Print Language Print Language: Luxembourgish Discharge ED Provider: Dre Lyons Adult HPI General Chief complaint: Extremity Problem,Nontraumatic Stated complaint: upper L arm injury Time Seen by Provider: 02/06/24 01:51 History of Present Illness HPI narrative: 58-year-old female with history of rheumatoid arthritis presents for left shoulder pain. She reports this started yesterday, she felt sudden pain when she lifted her arm up laterally. She reports that she had the same thing happened in her right arm and was seen in our ER at that time, this was a few months ago. She reports that she got a shot and went to see her PCP and got physical therapy and it improved. She denies any recent fever or illness. She is on a biweekly controlling medication as well as daily hydroxychloroquine for her rheumatoid. Related Data Home Medications ?Medication ?Instructions ?Recorded ?Confirmed alprazolam 0.5 mg tablet 0.5 mg PO TID Depression 30 days 07/05/17 12/27/23 ##90 hydroxychloroquine 200 mg tablet 200 mg PO BID Arthritis 30 days 07/05/17 12/27/23 ##60 atorvastatin 10 mg tablet 10 mg PO DAILY Cholesterol 11/03/19 12/27/23 citalopram 10 mg tablet 10 mg PO DAILY 10/09/23 12/27/23 diclofenac sodium 1 % topical gel topical 10/09/23 12/27/23 prednisone 20 mg tablet 20 mg PO DAILY PRN 10/09/23 12/27/23 tocilizumab 162 mg/0.9 mL 162 mg SQ WEEKLY 10/09/23 12/27/23 subcutaneous pen injector (Actemra ACTPen) duloxetine 30 mg capsule,delayed 30 mg PO ONCE 12/27/23 12/27/23 release gabapentin 100 mg capsule 300 mg PO BID Pain 12/27/23 12/27/23 Previous Rx's ?Medication ?Instructions ?Recorded prednisone 50 mg tablet 50 mg PO DAILY 5 days #5 tabs 02/06/24 Allergies Allergy/AdvReac Type Severity Reaction Status Date / Time adalimumab (From Humira) Allergy Mild Hives Verified 12/26/23 17:42 [facility] Disclaimer: The information contained in this section may have been updated after the patient was seen, as this information can be updated by other users. Medical History History of mood disorder Typical angina Subarachnoid hemorrhage Surgical History History of tubal ligation History of cholecystectomy Family History Other COPD (chronic obstructive pulmonary disease) Coronary artery disease Diabetes Social History Smoking Status: Never smoker smoking status stop date: 1989 alcohol intake: current alcohol intake frequency: a few times a month counseling provided: none substance use type: marijuana current occupational status: unemployed Travel in the last 8 weeks: None household members: spouse and children housing: house marital status: number of children: 4 caffeine: Yes Other Medical History Have you received the Flu Vaccine for this season: No Have you received the Pneumonia Vaccine: No ROS Obtained: Yes All systems reviewed & no additional complaints except as documented Physical Exam General General appearance: alert and in no apparent distress Head Head exam: atraumatic and normocephalic Eye Eye exam: Present normal appearance, PERRL and EOMI ENT ENT exam: Present normal oropharynx and normal external ear exam Neck Neck exam: Present normal inspection and full ROM Chest Chest inspection: Present normal inspection and symmetric chest wall rise; Absent tenderness Respiratory Respiratory exam: Present normal lung sounds bilaterally; Absent respiratory distress Cardiovascular Cardiovascular exam: Present regular rate and normal rhythm Abdominal Exam Abdominal exam: Present soft; Absent distention, tenderness or guarding Extremities Exam Extremities exam: Present normal inspection and other (Mild tenderness posteriorly and anteriorly on the shoulder, pain with active range of motion, patient unable to actively range greater than 45 degrees without pain, no swelling or erythema of the joint); Absent edema or joint swelling Back Exam Back exam: Present normal inspection; Absent tenderness Neurological Exam Neurological exam: Present alert and oriented X3; Absent motor sensory deficit Psychiatric Psychiatric exam: Present normal affect and normal mood Skin Skin exam: Present warm, dry and normal color Lymphatic Lymphatic Findings: no adenopathy Medical Decision Making Medical Records Medical records reviewed: Yes I reviewed the patient's medical records. Screening: Per USPSTF and CDC recommendations, given the prevalence of disease in our region, it is our hospital?s policy to screen for HIV and viral Hepatitis for all patients aged 18 and over and those with ongoing risk factors. Gregor Inquiry Pt receiving controlled substance: No Gregor was queried for this patient: No Vital Signs: 02/06/24 01:56 02/06/24 02:00 02/06/24 02:35 Temperature 97.9 F 97.9 F Temperature Source Oral Oral Pulse Rate 91 H 74 Pulse Rate [Right Radial] 97 H Respiratory Rate 18 18 Blood Pressure 165/108 H 132/78 Blood Pressure [Right Arm] 165/108 H Blood Pressure Mean [Right Arm] 127 Blood Pressure Source Automatic Cuff Blood Pressure Source [Right Arm] Automatic Cuff Blood Pressure Position Sitting Blood Pressure Position [Right Arm] Sitting 02 Sat by Pulse Oximetry 99 97 Oxygen Delivery Method Room Air Room Air Lab Data Lab results reviewed: Yes I reviewed the patient's lab results. Orders (Tests/Meds): ED MEDICATIONS Discontinued Medications Generic Name Dose Route Start Last Admin Trade Name Freq PRN Reason Stop Dose Admin Dexamethasone 10 mg 02/06/24 02:26 02/06/24 02:30 Dexamethasone 4mg Tablet PO 02/06/24 02:27 10 mg ONCE ONE Administration Ketorolac Tromethamine 30 mg 02/06/24 02:10 02/06/24 02:16 Ketorolac 30mg/Ml Vial IM 02/06/24 02:11 30 mg ONCE ONE Administration ORDERS Category Date Time Status Shoulder XR left minimum 2 views [XR shoulder LT min 2V Exams 02/06/24 02:10 Completed ] Stat Medical Decision Narrative: 58-year-old female with history of rheumatoid arthritis presents with left shoulder pain after feeling something when she moved it yesterday. History was obtained via interactive discussion with patient, chart. On arrival, patient is [afebrile, hemodynamically stable, satting appropriately, alert, oriented x4, GCS 15], moving all extremities spontaneously. Full physical exam performed and significant for no swelling of the joint, no erythema, mild tenderness and pain with range of motion of the left shoulder. Differential includes but is not limited to fracture, dislocation, rotator cuff injury, capsulitis, rheumatoid arthritis flare,. Workup initiated including radiographs of the left shoulder. On re-evaluation, patient [remains afebrile, HD stable.] Imaging independently interpreted by me and significant for no evidence of acute fracture or dislocation. See radiology read for full review of final results. Blood work was considered, but deemed unnecessary due to history and exam. Given patient history, exam and workup, patient's presentation most likely represents musculoskeletal injury of the left shoulder, could be result of rheumatoid arthritis flare. Patient reports that she was given steroids and Toradol last time she was here for her right arm and she felt like it made significant improvement. As such, patient was given Decadron and Toradol and encouraged to follow-up with PCP for physical therapy and further assessment.. Procedures Risk/Benefits of Procedure(s) Were Explained: Yes Critical Care Critical Care Time Critical Care Time: No
[2024-02-06 02:00] VITALS: BP 165/108; PULSE 91; O2SAT 97
--- NOTE | 2024-02-06 02:10 | XR_ITS ---
PROCEDURE INFORMATION: Exam: XR Left Shoulder Exam date and time: 02/06/2024 2:10 AM Age: 58 years old Clinical indication: Pain; Shoulder; Left; Additional info: Pain with range of motion, HX rheumatoid TECHNIQUE: Imaging protocol: Radiologic exam of the left shoulder. Views: 2 or more views. COMPARISON: CT ANGIO CHEST 12/25/2020 7:53 PM FINDINGS: Bones/joints: Normal. Soft tissues: Normal. IMPRESSION: No acute findings.
[2024-02-06] MEDS: KETOROLAC 30MG/ML VIAL 30 MG IM (02:16)
[2024-02-06] MEDS: DEXAMETHASONE 4MG TABLET 10 MG PO (02:30)
[2024-02-06 02:35] VITALS: BP 132/78; PULSE 74; RESP 18; TEMP 36.6; O2SAT 98
== END 2024-02-06 02:36 | disposition home or self-care (01) ==
PROVIDERS: Emergency Provider Emergency Medicine; PCP Family Medicine
DX: M25.512 Pain in left shoulder (principal)
CPT/HCPCS: 73030; 96372; 99283; J1885; J8540